=== PATIENT | female | born 1980 | race Two or more races ===

== ENCOUNTER 2024-03-11 13:30 | Inpatient (IN) | payer OTHER, MEDICAID, SELFPAY ==
[2024-03-11 13:55] VITALS: BP 109/65; PULSE 71; RESP 16; TEMP 36.9; O2SAT 99; BMI 23.4
--- NOTE | 2024-03-11 14:21 | HO.PSYADMNOT ---
HPI Date of Service: 03/11/24 Chief Complaint: Major Depression Sources of Information: patient interviewed, chart reviewed and crisis/core team assessment reviewed HPI Subjective Notes: [place]millan Warning and Conditional Voluntary Narrative: Patient is a 43 year old female with hx of MDD with psychotic features and PTSD, who self presented to ER d/t increased depression secondary to medication non-compliance. Per crisis report, per patient's boyfriend, pt stopped her medications a month ago and seeing her outpatient providers. He reports the patient will leave the house and roam the streets for hours. He stated he had put in a missing person's alert to the police. Per report, pt has not been making sense and needing help with ADL's. UTOX positive for cannabinoids. During admission assessment, armored car driver present. Pt presents alert and oriented, calm, cooperative. Pt reports feeling depressed and anxious ; pt stated, I've been different than I normally am. I am fighting with my boyfriend . Patient stated, I stopped taking the medications because I felt better ; pt educated regarding importance of medication compliance. Pt reports she has an outpatient therapist and psychiatrist. Pt denies SI/HI/VH/AH. Pt stated, my goal is to get on my meds, feel better and go back home . Discussed hx of medications; pt agreed to restarting home medications. Past Psychiatric History: Hx of multiple inpatient psychiatric hospitalizations: [facility], [facility], [facility], [facility]. Medical Evaluation Reviewed: Hospitalist Janeth Pending [facility] Family History: brother: hx of substance abuse. Social History: lives with boyfriend in an apartment, 2 children (5 and 14 y/o) one lives with their father and the other is in DCF custody. Substance History: pt reports drinks alcohol socially. smoke marijuana daily but stopped a few days ago. Trauma History: yes Diagnostics Vital Signs (24Hr): Vital Signs - 24 hr 03/11/24 13:55 Temperature 98.4 F Pulse Rate 71 Respiratory Rate 16 Blood Pressure 109/65 Pulse Oximetry 99 Oxygen Delivery Method Room Air BMI result Body Mass Index 23.4 Meds/Allergies Allergies Allergies Allergy/AdvReac Type Severity Reaction Status Date / Time No Known Allergies Allergy Verified 03/11/24 13:57 Mental Status Exam Mental Status Exam Narrative: Pt is alert and oriented; behavior is cooperative and calm; dressed in hospital attire; mood is described as depressed ; eye contact appropriate; Speech is normal rate, volume and prosody and not pressured; thought process is organized and goal directed; Thought content is on tx; denies SI/HI/VH/AH. Assessment & Plan Assessment & Plan (1) MDD (major depressive disorder), recurrent, severe, with psychosis: Status: Acute Code(s): F33.3 - Major depressive disorder, recurrent, severe with psychotic symptoms (2) PTSD (post-traumatic stress disorder): Status: Acute Code(s): F43.10 - Post-traumatic stress disorder, unspecified Plan Patient is a 43 year old female with hx of MDD with psychotic features and PTSD, who self presented to ER d/t increased depression secondary to medication non-compliance. Plan: CV 15 minute safety checks obtain collateral Start: Trazodone 150mg PO bedtime Gabapentin 400mg PO TID Vraylar 1.5mg PO daily discharge planning Patient educated on: diagnosis, medication risk/benefits, substance abuse and therapeutic strategies Informed Consent: understands Reason for continued inpatient stay Substantial Risk for: med/psych decompensation Statement Statement: I have reviewed the history and physical and performed a pertinent examination on my patient. No changes have occurred unless specified. If the History and Physical was not performed prior to admission, the Hospitalist's service will be consulted for completing the admission physical. Time Spent With Patient Time: Total time managing care of this patient today _60___ minutes.
--- NOTE | 2024-03-11 14:57 | P.CONHOSP_ITS ---
History of Present Illness Data of Consult Service Date: 03/11/24 Requesting physician: Jagdeep Ontiveros Primary Care Provider: Unknown Physician HPI Reason for consult: medical H&P 43-year-old female without any significant medical history who reports occasional marijuana use and cigarette smoking only 1 stressed admitted to adult Psychiatry with consult placed hospitalist service for medical H&P. She has no complaints at this time and there does not appear to be any acute medical issues. While at [facility] ED, hematology studies unremarkable. Renal function electrolyte levels normal. EKG showed normal sinus rhythm, rate [address]/T-wave abnormalities. Review of Systems Review of Systems: General: No fevers, malaise, unintentional weight loss HEENT: No blurred vision, diplopia. No sore throat, nasal congestion, rhinorrhea, sinus pain, ear pain Cardiovascular: No chest pain, palpitations, or leg edema Respiratory: No shortness of breath, wheezing, cough GI: No abdominal pain, nausea, vomiting, diarrhea, constipation, melena, hematochezia : No dysuria, hematuria, increased urinary frequency, decreased urinary output MSK: No myalgia, back pain Neuro: No headaches, weakness, paresthesias Skin: No rashes or lesions [facility] Medical History (Updated 03/11/24 @ 14:59 by BLAS Ramachandran) No pertinent past medical history Social History Household Members: Significant Other Housing: Apartment Patient Tobacco Use Status: Former Tobacco user Use of substances other than those prescribed or required for medical reasons: No Substance Use Type: Marijuana Substance Use Frequency: Occasionally Last Used Substance: Just Prior to Admission Currently Displaying Signs/Symptoms of Drug Intoxication Withdrawal: No Have you been hit, kicked, punched, or otherwise hurt by someone within the past year? If so, by whom?: No Do you feel safe in your current relationship?: Yes Is there a partner from a previous relationship who is making you feel unsafe now?: No Are you made to feel afraid or neglected: No Advance Directives: No Advance Directives Information Provided: No Do you have a plan to hurt others: No Plan Recently lost weight without trying: Yes How much weight loss: 14-23 pounds Eating poorly because of decreased appetite: Yes Nutrition screen score: 5 Nutrition Risks: No Nutritional Risk Patient : No : No Poor oral hygiene: No Meds Allergies Allergy/AdvReac Type Severity Reaction Status Date / Time No Known Allergies Allergy Verified 03/11/24 13:57 Active Medications: Current Medications Acetaminophen (Acetaminophen 325 Mg Tablet) 650 mg PO Q6H PRN PRN Reason: Headache/Pain Mild Scale (1-3) Al Hydroxide/Mg Hydroxide (Magnesium Hydrox/Alum Hydrox 30 Ml Oral.Susp) 30 ml PO Q6H PRN PRN Reason: Heartburn/Nausea Cariprazine (Cariprazine Hcl 1.5 Mg Capsule) 1.5 mg PO DAILY [facility] Gabapentin (Gabapentin 400 Mg Capsule) 400 mg PO TID [facility] Hydroxyzine HCl (Hydroxyzine Hcl 25 Mg Tablet) 25 mg PO Q6H PRN PRN Reason: Anxiety Magnesium Hydroxide (Milk Of Magnesia 30 Ml Oral.Susp) 30 ml PO DAILY PRN PRN Reason: Constipation Nicotine Polacrilex (Nicotine Polacrilex 2 Mg Gum) 4 mg BUCCAL Q2H PRN PRN Reason: Nicotine Cravings Trazodone HCl (Trazodone Hcl 50 Mg Tablet) 150 mg PO BEDTIME [facility] Physical Exam Vital Signs and Narrative: Vital Signs: Last Vital Signs Temp 98.4 F 03/11/24 13:55 Pulse 71 03/11/24 13:55 Resp 16 03/11/24 13:55 BP 109/65 03/11/24 13:55 Pulse Ox 99 03/11/24 13:55 O2 Del Method Room Air 03/11/24 13:55 BMI result Body Mass Index 23.4 Constitutional - Awake and Alert, No apparent distress Eyes - PERRLA, EOMI Cardiovascular - S1S2, RRR, No edema Respiratory - Normal lung expansion, Normal respiratory effort, No respiratory distress, CTA bilaterally Gastrointestinal - NT / ND; +BS; No rebound or guarding Extremities - no calf tenderness bilaterally, no swelling Musculoskeletal - Normal inspection, normal ROM Skin - Warm/Dry Neurological - Alert & oriented x3, CN II-XII in tact, 5/5 strength BUE and BLE Psychological - Appropriate affect Assessment and Plan (1) Routine medical exam: Status: Acute Plan 43-year-old female without any significant medical history who reports occasional marijuana use and cigarette smoking only 1 stressed admitted to adult Psychiatry with consult placed hospitalist service for medical H&P. #Mood disorder -plan per Psychiatry # cigarette smoking -reports occasional use, cessation advised -declines replacement therapy Thank you for allowing me to participate in this consult. Signing off at this time. Please do not hesitate to call for further questions or for any acute medical issues
--- NOTE | 2024-03-11 14:57 | PC.ADMIT ---
Jo Ann is a 43-year-old female admitted from [facility] ED to on a CV for treatment of major depression recurrent with psychosis. Tox screen positive for THC. Pt's boyfriend dropped her off to [facility] ED after she reported feeling overwhelmed and distracted. She reported increased depression and difficulty sleeping. Pt reportedly has not been taking medications for over a month. Pt has a hx of numerous inpatient admissions at [facility], [facility], and [facility]. Pt reported being traumatized after her children were removed by [facility] in 2019 due to her depression and inability to care for them. Upon arrival to , pt was calm, pleasant, alert and oriented, and cooperative. Pt was slow to respond at times. Skin check complete. Mood is depressed with congruent affect. Pt does not appear to be responding to internal stimuli. Thought process is linear and organized. Pt reported recent weight loss of 15 lb in 1 month. Pt denies alcohol use or medical issues. Pt denied SI/HI/AH/VH. Pt placed on 15 minute safety checks.
[2024-03-11] MEDS: Cariprazine HCl 1.5 MG CAPSULE PO (15:21)
[2024-03-11] MEDS: Gabapentin 400 MG CAPSULE PO ×2 (15:21→21:44)
[2024-03-11 20:00] VITALS: BP 106/60; PULSE 61; RESP 16; TEMP 36.8; O2SAT 99
[2024-03-11] MEDS: traZODone HCL 50 MG TABLET 150 MG PO (21:43)
[2024-03-12 08:00] VITALS: BP 112/66; PULSE 79; RESP 16; TEMP 36.9; O2SAT 100
[2024-03-12] MEDS: Cariprazine HCl 1.5 MG CAPSULE PO (08:17)
[2024-03-12] MEDS: Gabapentin 400 MG CAPSULE PO ×3 (08:17→21:26)
[2024-03-12 08:38] LABS: Alanine Aminotransferase 14 U/L (0-31); Albumin Level 4.3 g/dL (3.5-5.0); Alkaline Phosphatase 42 U/L (39-117); Anion Gap 11 (12-20); Aspartate Amino Transferase 15 U/L (5-31); Bilirubin Total 0.4 mg/dL (0.0-1.0); Blood Urea Nitrogen 9 mg/dL (9-16); Calcium 9.3 mg/dL (8.4-10.2); Carbon Dioxide 24 mmol/L (22-29); Chloride 109 mmol/L (96-108); Cholesterol 133 mg/dL (<200); Creatinine Clr Calc Pharmacy 84.2; Estimated Glomerular Filt Rate > 60; Glucose Fasting 107 mg/dL (60-99); HDL Cholesterol 29 mg/dL (>40); LDL Cholesterol Calculated 94 mg/dL (<100); Potassium 3.9 mmol/L (3.3-5.1); Sodium 140 mmol/L (135-145); Triglycerides 53 mg/dL (<150)
--- NOTE | 2024-03-12 08:53 | P.PNPSI_ITS ---
Subjective Subjective Date of Service: 03/12/24 Reason For Visit: Major Depression Subjective Notes: Conditional Voluntary Interim History: Reviewed with . nanny caregiver present. Pt reports feeling good but a little anxious and restless ; pt stated, I'm starting to feel better. It's hard to explain but I'm feeling different than I felt when I came in here . Pt reports sleeping and eating well. denies SI/HI/VH/AH. Medication Compliance: Yes Side effects from medications: No Review of Systems Constitutional: Reports as per HPI Eyes: Reports as per HPI Reports as per HPI Cardiovascular: Reports as per HPI Respiratory: Reports as per HPI Gastrointestinal: Reports as per HPI Musculoskeletal: Reports as per HPI Skin/Breast: Reports as per HPI Reports as per HPI Psychiatric: Reports as per HPI Endocrine: Reports as per HPI Hematologic/Lymphatic: Reports as per HPI Allergic/Immunologic: Reports as per HPI Mental Status Exam Mental Status Exam Narrative: Pt is alert and oriented; behavior is cooperative and calm; dressed in hospital attire; mood is described as anxious ; eye contact appropriate; Speech is normal rate, volume and prosody and not pressured; thought process is organized and goal directed; Thought content is on tx; denies SI/HI/VH/AH. Diagnostics Vital Signs (24Hr): Vital Signs - 24 hr 03/11/24 13:55 03/11/24 20:00 03/12/24 08:00 Temperature 98.4 F 98.3 F 98.5 F Pulse Rate 71 61 79 Respiratory Rate 16 16 16 Blood Pressure 109/65 106/60 112/66 Pulse Oximetry 99 99 100 Oxygen Delivery Method Room Air Room Air Room Air BMI result Body Mass Index 23.4 Labs 03/12/24 08:09 Labs: Laboratory Results - last 48 hr 03/12/24 08:09 Sodium 140 Potassium 3.9 Chloride 109 H Carbon Dioxide 24 Anion Gap 11 L BUN 9 Creatinine 0.72 Estim Creat Clear Calc 84.2 Estimated GFR > 60 Fasting Glucose 107 H Calcium 9.3 Total Bilirubin 0.4 AST 15 ALT 14 Alkaline Phosphatase 42 Total Protein 7.0 Albumin 4.3 Triglycerides 53 Cholesterol 133 LDL Cholesterol, Calc 94 HDL Cholesterol 29 L Medications Medications Current Medications Acetaminophen (Acetaminophen 325 Mg Tablet) 650 mg PO Q6H PRN PRN Reason: Headache/Pain Mild Scale (1-3) Al Hydroxide/Mg Hydroxide (Magnesium Hydrox/Alum Hydrox 30 Ml Oral.Susp) 30 ml PO Q6H PRN PRN Reason: Heartburn/Nausea Cariprazine (Cariprazine Hcl 1.5 Mg Capsule) 1.5 mg PO DAILY [facility] Last Admin: 03/12/24 08:17 Dose: 1.5 mg Gabapentin (Gabapentin 400 Mg Capsule) 400 mg PO TID [facility] Last Admin: 03/12/24 08:17 Dose: 400 mg Hydroxyzine HCl (Hydroxyzine Hcl 25 Mg Tablet) 25 mg PO Q6H PRN PRN Reason: Anxiety Magnesium Hydroxide (Milk Of Magnesia 30 Ml Oral.Susp) 30 ml PO DAILY PRN PRN Reason: Constipation Nicotine Polacrilex (Nicotine Polacrilex 2 Mg Gum) 4 mg BUCCAL Q2H PRN PRN Reason: Nicotine Cravings Trazodone HCl (Trazodone Hcl 50 Mg Tablet) 150 mg PO BEDTIME [facility] Last Admin: 03/11/24 21:43 Dose: 150 mg Allergies Allergies Allergy/AdvReac Type Severity Reaction Status Date / Time No Known Allergies Allergy Verified 03/11/24 13:57 Assessment & Plan Assessment & Plan (1) MDD (major depressive disorder), recurrent, severe, with psychosis: Status: Acute Code(s): F33.3 - Major depressive disorder, recurrent, severe with psychotic symptoms (2) PTSD (post-traumatic stress disorder): Status: Acute Code(s): F43.10 - Post-traumatic stress disorder, unspecified Plan Patient is a 43 year old female with hx of MDD with psychotic features and PTSD, who self presented to ER d/t increased depression secondary to medication non- compliance. Plan: CV 15 minute safety checks obtain collateral Start: Trazodone 150mg PO bedtime Gabapentin 400mg PO TID Vraylar 1.5mg PO daily discharge planning 03/12: nanny caregiver present. Pt reports feeling good but a little anxious and restless ; pt stated, I'm starting to feel better. It's hard to explain but I'm feeling different than I felt when I came in here . Pt reports sleeping and eating well. denies SI/HI/VH/AH. continue current tx plan. Patient educated on: diagnosis and medication risk/benefits Informed Consent: understands Reason for continued inpatient stay Substantial Risk for: med/psych decompensation Time Spent With Patient Time: Total time managing care of this patient today _20___ minutes.
[2024-03-12 19:45] VITALS: BP 98/57; PULSE 70; RESP 16; TEMP 36.8; O2SAT 100
[2024-03-12] MEDS: traZODone HCL 50 MG TABLET 150 MG PO (21:26)
[2024-03-13 07:00] VITALS: BMI 23.5
[2024-03-13 07:50] VITALS: BP 115/55; PULSE 84; RESP 16; TEMP 36.7; O2SAT 100
[2024-03-13] MEDS: Gabapentin 400 MG CAPSULE PO ×3 (08:19→21:04)
[2024-03-13] MEDS: Cariprazine HCl 1.5 MG CAPSULE PO (08:19)
--- NOTE | 2024-03-13 09:38 | P.PNPSI_ITS ---
Subjective Subjective Date of Service: 03/13/24 Reason For Visit: Major Depression Subjective Notes: Conditional Voluntary Interim History: Reviewed with . natural gas basis trader and social science manager, Li, present. Pt reports feeling similar to yesterday; still anxious but not as depressed ; pt stated, I'm not sure what is making me anxious. I feel like I should be doing something . pt denies SI/HI/VH/AH. Vraylar increased to 3mg PO daily. Medication Compliance: Yes Side effects from medications: No Attending Groups: No Review of Systems Constitutional: Reports as per HPI Eyes: Reports as per HPI Reports as per HPI Cardiovascular: Reports as per HPI Respiratory: Reports as per HPI Gastrointestinal: Reports as per HPI Musculoskeletal: Reports as per HPI Skin/Breast: Reports as per HPI Reports as per HPI Psychiatric: Reports as per HPI Endocrine: Reports as per HPI Hematologic/Lymphatic: Reports as per HPI Allergic/Immunologic: Reports as per HPI Mental Status Exam Mental Status Exam Narrative: Pt is alert and oriented; behavior is cooperative and calm; dressed in hospital attire; mood is described as anxious ; eye contact appropriate; Speech is normal rate, volume and prosody and not pressured; thought process is organized and goal directed; Thought content is on tx; denies SI/HI/VH/AH. Diagnostics Vital Signs (24Hr): Vital Signs - 24 hr 03/12/24 19:45 03/13/24 07:50 Temperature 98.3 F 98.0 F Pulse Rate 70 84 Respiratory Rate 16 16 Blood Pressure 98/57 L 115/55 L Pulse Oximetry 100 100 Oxygen Delivery Method Room Air Room Air BMI result Body Mass Index 23.5 Labs 03/12/24 08:09 Labs: Laboratory Results - last 48 hr 03/12/24 08:09 Sodium 140 Potassium 3.9 Chloride 109 H Carbon Dioxide 24 Anion Gap 11 L BUN 9 Creatinine 0.72 Estim Creat Clear Calc 84.2 Estimated GFR > 60 Fasting Glucose 107 H Calcium 9.3 Total Bilirubin 0.4 AST 15 ALT 14 Alkaline Phosphatase 42 Total Protein 7.0 Albumin 4.3 Triglycerides 53 Cholesterol 133 LDL Cholesterol, Calc 94 HDL Cholesterol 29 L Medications Medications Current Medications Acetaminophen (Acetaminophen 325 Mg Tablet) 650 mg PO Q6H PRN PRN Reason: Headache/Pain Mild Scale (1-3) Al Hydroxide/Mg Hydroxide (Magnesium Hydrox/Alum Hydrox 30 Ml Oral.Susp) 30 ml PO Q6H PRN PRN Reason: Heartburn/Nausea Cariprazine (Cariprazine Hcl 1.5 Mg Capsule) 1.5 mg PO DAILY [facility] Last Admin: 03/13/24 08:19 Dose: 1.5 mg Gabapentin (Gabapentin 400 Mg Capsule) 400 mg PO TID [facility] Last Admin: 03/13/24 08:19 Dose: 400 mg Hydroxyzine HCl (Hydroxyzine Hcl 25 Mg Tablet) 25 mg PO Q6H PRN PRN Reason: Anxiety Magnesium Hydroxide (Milk Of Magnesia 30 Ml Oral.Susp) 30 ml PO DAILY PRN PRN Reason: Constipation Nicotine Polacrilex (Nicotine Polacrilex 2 Mg Gum) 4 mg BUCCAL Q2H PRN PRN Reason: Nicotine Cravings Trazodone HCl (Trazodone Hcl 50 Mg Tablet) 150 mg PO BEDTIME [facility] Last Admin: 03/12/24 21:26 Dose: 150 mg Allergies Allergies Allergy/AdvReac Type Severity Reaction Status Date / Time No Known Allergies Allergy Verified 03/11/24 13:57 Assessment & Plan Assessment & Plan (1) MDD (major depressive disorder), recurrent, severe, with psychosis: Status: Acute Code(s): F33.3 - Major depressive disorder, recurrent, severe with psychotic symptoms (2) PTSD (post-traumatic stress disorder): Status: Acute Code(s): F43.10 - Post-traumatic stress disorder, unspecified Plan Patient is a 43 year old female with hx of MDD with psychotic features and PTSD, who self presented to ER d/t increased depression secondary to medication non- compliance. Plan: CV 15 minute safety checks obtain collateral Start: Trazodone 150mg PO bedtime Gabapentin 400mg PO TID Vraylar 1.5mg PO daily discharge planning 03/12: natural gas basis trader present. Pt reports feeling good but a little anxious and restless ; pt stated, I'm starting to feel better. It's hard to explain but I'm feeling different than I felt when I came in here . Pt reports sleeping and eating well. denies SI/HI/VH/AH. continue current tx plan. 03/13: social science managerLi, present. Pt reports feeling similar to yesterday; still anxious but not as depressed ; pt stated, I'm not sure what is making me anxious. I feel like I should be doing something . pt denies SI/HI/VH/AH. Vraylar increased to 3mg PO daily. Patient educated on: diagnosis and medication risk/benefits Informed Consent: understands Reason for continued inpatient stay Substantial Risk for: med/psych decompensation Time Spent With Patient Time: Total time managing care of this patient today _20___ minutes.
[2024-03-13] MEDS: hydrOXYzine HCL 25 MG TABLET PO (15:26)
[2024-03-13 20:00] VITALS: BP 104/60; PULSE 64; RESP 16; TEMP 37.1; O2SAT 99
[2024-03-13] MEDS: traZODone HCL 50 MG TABLET 150 MG PO (21:04)
[2024-03-14 08:00] VITALS: BP 98/63; PULSE 78; RESP 16; TEMP 36.6; O2SAT 99
[2024-03-14] MEDS: Gabapentin 400 MG CAPSULE PO ×3 (08:38→20:31)
[2024-03-14] MEDS: Cariprazine HCl 3 MG CAPSULE PO (08:38)
--- NOTE | 2024-03-14 09:18 | HO.PSYCHPN ---
Subjective Subjective Date of Service: 03/14/24 Reason For Visit: Major Depression Subjective Notes: Conditional Voluntary Interim History: Reviewed with . jet engine mechanic and social insurance analyst, Li, present. Pt reports feeling anxious but the medications are helping .pt guarded during assessment; she reports getting upset last evening d/t thinking about a situation I don't want to talk about . pt denies SI/HI/VH/AH. Family meeting scheduled with sister for 03/18/24. Medication Compliance: Yes Side effects from medications: No Attending Groups: No Review of Systems Constitutional: Reports as per HPI Eyes: Reports as per HPI Reports as per HPI Cardiovascular: Reports as per HPI Respiratory: Reports as per HPI Gastrointestinal: Reports as per HPI Musculoskeletal: Reports as per HPI Skin/Breast: Reports as per HPI Reports as per HPI Psychiatric: Reports as per HPI Endocrine: Reports as per HPI Hematologic/Lymphatic: Reports as per HPI Allergic/Immunologic: Reports as per HPI Mental Status Exam Mental Status Exam Narrative: Pt is alert and oriented; behavior is cooperative and calm; dressed in hospital attire; mood is described as anxious ; eye contact appropriate; Speech is normal rate, volume and prosody and not pressured; thought process is organized and goal directed; Thought content is on tx; denies SI/HI/VH/AH. Diagnostics Vital Signs (24Hr): Vital Signs - 24 hr 03/13/24 20:00 03/14/24 08:00 Temperature 98.8 F 97.9 F Pulse Rate 64 78 Respiratory Rate 16 16 Blood Pressure 104/60 98/63 Pulse Oximetry 99 99 Oxygen Delivery Method Room Air Room Air BMI result Body Mass Index 23.5 Labs 03/12/24 08:09 Medications Medications Current Medications Acetaminophen (Acetaminophen 325 Mg Tablet) 650 mg PO Q6H PRN PRN Reason: Headache/Pain Mild Scale (1-3) Al Hydroxide/Mg Hydroxide (Magnesium Hydrox/Alum Hydrox 30 Ml Oral.Susp) 30 ml PO Q6H PRN PRN Reason: Heartburn/Nausea Cariprazine (Cariprazine Hcl 3 Mg Capsule) 3 mg PO DAILY [facility] Last Admin: 03/14/24 08:38 Dose: 3 mg Gabapentin (Gabapentin 400 Mg Capsule) 400 mg PO TID [facility] Last Admin: 03/14/24 08:38 Dose: 400 mg Hydroxyzine HCl (Hydroxyzine Hcl 25 Mg Tablet) 25 mg PO Q6H PRN PRN Reason: Anxiety Last Admin: 03/13/24 15:26 Dose: 25 mg Magnesium Hydroxide (Milk Of Magnesia 30 Ml Oral.Susp) 30 ml PO DAILY PRN PRN Reason: Constipation Nicotine Polacrilex (Nicotine Polacrilex 2 Mg Gum) 4 mg BUCCAL Q2H PRN PRN Reason: Nicotine Cravings Trazodone HCl (Trazodone Hcl 50 Mg Tablet) 150 mg PO BEDTIME [facility] Last Admin: 03/13/24 21:04 Dose: 150 mg Allergies Allergies Allergy/AdvReac Type Severity Reaction Status Date / Time No Known Allergies Allergy Verified 03/11/24 13:57 Assessment & Plan Assessment & Plan (1) MDD (major depressive disorder), recurrent, severe, with psychosis: Status: Acute Code(s): F33.3 - Major depressive disorder, recurrent, severe with psychotic symptoms (2) PTSD (post-traumatic stress disorder): Status: Acute Code(s): F43.10 - Post-traumatic stress disorder, unspecified Plan Patient is a 43 year old female with hx of MDD with psychotic features and PTSD, who self presented to ER d/t increased depression secondary to medication non-compliance. Plan: CV 15 minute safety checks obtain collateral Start: Trazodone 150mg PO bedtime Gabapentin 400mg PO TID Vraylar 1.5mg PO daily discharge planning 03/12: jet engine mechanic present. Pt reports feeling good but a little anxious and restless ; pt stated, I'm starting to feel better. It's hard to explain but I'm feeling different than I felt when I came in here . Pt reports sleeping and eating well. denies SI/HI/VH/AH. continue current tx plan. 03/13: social insurance analystLi, present. Pt reports feeling similar to yesterday; still anxious but not as depressed ; pt stated, I'm not sure what is making me anxious. I feel like I should be doing something . pt denies SI/HI/VH/AH. Vraylar increased to 3mg PO daily. 03/14: jet engine mechanic and social insurance analystLi, present. Pt reports feeling anxious but the medications are helping .pt guarded during assessment; she reports getting upset last evening d/t thinking about a situation I don't want to talk about . pt denies SI/HI/VH/AH. Family meeting scheduled with sister for 03/18/24. Patient educated on: diagnosis and medication risk/benefits Informed Consent: understands Reason for continued inpatient stay Substantial Risk for: med/psych decompensation Time Spent With Patient Time: Total time managing care of this patient today _20___ minutes.
[2024-03-14] MEDS: hydrOXYzine HCL 25 MG TABLET PO (14:23)
[2024-03-14 20:00] VITALS: BP 100/58; PULSE 80; RESP 18; TEMP 36.5; O2SAT 100
[2024-03-14] MEDS: Milk of Magnesia 30 ML ORAL.SUSP PO (20:20)
[2024-03-14] MEDS: traZODone HCL 50 MG TABLET 150 MG PO (20:31)
[2024-03-15 07:46] VITALS: BP 106/69; PULSE 104; RESP 20; TEMP 36.6; O2SAT 100
[2024-03-15] MEDS: Gabapentin 400 MG CAPSULE PO ×3 (08:26→21:58)
[2024-03-15] MEDS: Cariprazine HCl 3 MG CAPSULE PO (08:27)
--- NOTE | 2024-03-15 08:57 | HO.PSYCHPN ---
Subjective Subjective Date of Service: 03/15/24 Reason For Visit: Major Depression Interim History: Pt reports feeling anxious but overall improved. Denies SI/HI/VH/AH. She is adherent to medications and denies side effects. Sleep is good. Isolates. No groups. Review of Systems Review of Systems General: No fevers, malaise, unintentional weight loss HEENT: No blurred vision, diplopia. No sore throat, nasal congestion, rhinorrhea, sinus pain, ear pain Cardiovascular: No chest pain, palpitations, or leg edema Respiratory: No shortness of breath, wheezing, cough GI: No abdominal pain, nausea, vomiting, diarrhea, constipation, melena, hematochezia : No dysuria, hematuria, increased urinary frequency, decreased urinary output MSK: No myalgia, back pain Neuro: No headaches, weakness, paresthesias Skin: No rashes or lesions Constitutional: Reports as per HPI Eyes: Reports as per HPI Reports as per HPI Cardiovascular: Reports as per HPI Respiratory: Reports as per HPI Gastrointestinal: Reports as per HPI Musculoskeletal: Reports as per HPI Skin/Breast: Reports as per HPI Reports as per HPI Psychiatric: Reports as per HPI Endocrine: Reports as per HPI Hematologic/Lymphatic: Reports as per HPI Allergic/Immunologic: Reports as per HPI Mental Status Exam Mental Status Exam Narrative: Pt is alert and oriented; behavior is cooperative and calm; dressed in hospital attire; mood is described as anxious ; eye contact appropriate; Speech is normal rate, volume and prosody and not pressured; thought process is organized and goal directed; Thought content is on tx; denies SI/HI/VH/AH. Diagnostics Vital Signs (24Hr): Vital Signs - 24 hr 03/14/24 20:00 03/15/24 07:46 Temperature 97.7 F 97.8 F Pulse Rate 80 104 H Respiratory Rate 18 20 Blood Pressure 100/58 L 106/69 Pulse Oximetry 100 100 Oxygen Delivery Method Room Air Room Air BMI result Body Mass Index 23.5 Labs 03/12/24 08:09 Medications Medications Current Medications Acetaminophen (Acetaminophen 325 Mg Tablet) 650 mg PO Q6H PRN PRN Reason: Headache/Pain Mild Scale (1-3) Al Hydroxide/Mg Hydroxide (Magnesium Hydrox/Alum Hydrox 30 Ml Oral.Susp) 30 ml PO Q6H PRN PRN Reason: Heartburn/Nausea Cariprazine (Cariprazine Hcl 3 Mg Capsule) 3 mg PO DAILY [facility] Last Admin: 03/15/24 08:27 Dose: 3 mg Gabapentin (Gabapentin 400 Mg Capsule) 400 mg PO TID [facility] Last Admin: 03/15/24 08:26 Dose: 400 mg Hydroxyzine HCl (Hydroxyzine Hcl 25 Mg Tablet) 25 mg PO Q6H PRN PRN Reason: Anxiety Last Admin: 03/14/24 14:23 Dose: 25 mg Magnesium Hydroxide (Milk Of Magnesia 30 Ml Oral.Susp) 30 ml PO DAILY PRN PRN Reason: Constipation Last Admin: 03/14/24 20:20 Dose: 30 ml Nicotine Polacrilex (Nicotine Polacrilex 2 Mg Gum) 4 mg BUCCAL Q2H PRN PRN Reason: Nicotine Cravings Trazodone HCl (Trazodone Hcl 50 Mg Tablet) 150 mg PO BEDTIME [facility] Last Admin: 03/14/24 20:31 Dose: 150 mg Allergies Allergies Allergy/AdvReac Type Severity Reaction Status Date / Time No Known Allergies Allergy Verified 03/11/24 13:57 Assessment & Plan Assessment & Plan (1) MDD (major depressive disorder), recurrent, severe, with psychosis: Status: Acute Code(s): F33.3 - Major depressive disorder, recurrent, severe with psychotic symptoms (2) PTSD (post-traumatic stress disorder): Status: Acute Code(s): F43.10 - Post-traumatic stress disorder, unspecified Plan Patient is a 43 year old female with hx of MDD with psychotic features and PTSD, who self presented to ER d/t increased depression secondary to medication non-compliance. Plan: CV 15 minute safety checks obtain collateral Start: Trazodone 150mg PO bedtime Gabapentin 400mg PO TID Vraylar 1.5mg PO daily discharge planning 03/12: care management associate present. Pt reports feeling good but a little anxious and restless ; pt stated, I'm starting to feel better. It's hard to explain but I'm feeling different than I felt when I came in here . Pt reports sleeping and eating well. denies SI/HI/VH/AH. continue current tx plan. 03/13: social service managerLi, present. Pt reports feeling similar to yesterday; still anxious but not as depressed ; pt stated, I'm not sure what is making me anxious. I feel like I should be doing something . pt denies SI/HI/VH/AH. Vraylar increased to 3mg PO daily. 03/14: care management associate and social service manager, Li, present. Pt reports feeling anxious but the medications are helping .pt guarded during assessment; she reports getting upset last evening d/t thinking about a situation I don't want to talk about . pt denies SI/HI/VH/AH. Family meeting scheduled with sister for 03/18/24. 03/15: continue current management and treatment plan. Reason for continued inpatient stay Substantial Risk for: inability to function and rapid decompensation Time Spent With Patient Time: Total time managing care of this patient today ____ minutes.
[2024-03-15 20:00] VITALS: RESP 18
[2024-03-15] MEDS: traZODone HCL 50 MG TABLET 150 MG PO (21:58)
[2024-03-16 07:40] VITALS: BP 110/55; PULSE 100; RESP 16; TEMP 36.5; O2SAT 99
[2024-03-16] MEDS: Cariprazine HCl 3 MG CAPSULE PO (08:44)
[2024-03-16] MEDS: Gabapentin 400 MG CAPSULE PO ×3 (08:44→22:00)
[2024-03-16] MEDS: hydrOXYzine HCL 25 MG TABLET PO (13:59)
--- NOTE | 2024-03-16 15:59 | HO.PSYCHPN ---
Subjective Subjective Date of Service: 03/16/24 Reason For Visit: Major Depression Interim History: Pt reports feeling anxious but overall improved. Says she thought she heard voice for a few minutes and then it resolved on its own. Denies SI/HI/VH. She is adherent to medications and denies side effects. Sleep is good. Isolates. No groups. Review of Systems Review of Systems General: No fevers, malaise, unintentional weight loss HEENT: No blurred vision, diplopia. No sore throat, nasal congestion, rhinorrhea, sinus pain, ear pain Cardiovascular: No chest pain, palpitations, or leg edema Respiratory: No shortness of breath, wheezing, cough GI: No abdominal pain, nausea, vomiting, diarrhea, constipation, melena, hematochezia : No dysuria, hematuria, increased urinary frequency, decreased urinary output MSK: No myalgia, back pain Neuro: No headaches, weakness, paresthesias Skin: No rashes or lesions Constitutional: Reports as per HPI Eyes: Reports as per HPI Reports as per HPI Cardiovascular: Reports as per HPI Respiratory: Reports as per HPI Gastrointestinal: Reports as per HPI Musculoskeletal: Reports as per HPI Skin/Breast: Reports as per HPI Reports as per HPI Psychiatric: Reports as per HPI Endocrine: Reports as per HPI Hematologic/Lymphatic: Reports as per HPI Allergic/Immunologic: Reports as per HPI Mental Status Exam Mental Status Exam Narrative: Pt is alert and oriented; behavior is cooperative and calm; Rubs face/eyebrows repeatedly. dressed in hospital attire; mood is described as anxious ; eye contact appropriate; Speech is normal rate, volume and prosody and not pressured; thought process is organized and goal directed; Thought content is on tx; denies SI/HI Diagnostics Vital Signs (24Hr): Vital Signs - 24 hr 03/15/24 20:00 03/16/24 07:40 Temperature 97.7 F Pulse Rate 100 Respiratory Rate 18 16 Blood Pressure 110/55 L Pulse Oximetry 99 Oxygen Delivery Method Room Air BMI result Body Mass Index 23.5 Labs 03/12/24 08:09 Medications Medications Current Medications Acetaminophen (Acetaminophen 325 Mg Tablet) 650 mg PO Q6H PRN PRN Reason: Headache/Pain Mild Scale (1-3) Al Hydroxide/Mg Hydroxide (Magnesium Hydrox/Alum Hydrox 30 Ml Oral.Susp) 30 ml PO Q6H PRN PRN Reason: Heartburn/Nausea Cariprazine (Cariprazine Hcl 3 Mg Capsule) 3 mg PO DAILY [facility] Last Admin: 03/16/24 08:44 Dose: 3 mg Gabapentin (Gabapentin 400 Mg Capsule) 400 mg PO TID [facility] Last Admin: 03/16/24 15:06 Dose: 400 mg Hydroxyzine HCl (Hydroxyzine Hcl 25 Mg Tablet) 25 mg PO Q6H PRN PRN Reason: Anxiety Last Admin: 03/16/24 13:59 Dose: 25 mg Magnesium Hydroxide (Milk Of Magnesia 30 Ml Oral.Susp) 30 ml PO DAILY PRN PRN Reason: Constipation Last Admin: 03/14/24 20:20 Dose: 30 ml Nicotine Polacrilex (Nicotine Polacrilex 2 Mg Gum) 4 mg BUCCAL Q2H PRN PRN Reason: Nicotine Cravings Trazodone HCl (Trazodone Hcl 50 Mg Tablet) 150 mg PO BEDTIME [facility] Last Admin: 03/15/24 21:58 Dose: 150 mg Allergies Allergies Allergy/AdvReac Type Severity Reaction Status Date / Time No Known Allergies Allergy Verified 03/11/24 13:57 Assessment & Plan Assessment & Plan (1) MDD (major depressive disorder), recurrent, severe, with psychosis: Status: Acute Code(s): F33.3 - Major depressive disorder, recurrent, severe with psychotic symptoms (2) PTSD (post-traumatic stress disorder): Status: Acute Code(s): F43.10 - Post-traumatic stress disorder, unspecified Plan Patient is a 43 year old female with hx of MDD with psychotic features and PTSD, who self presented to ER d/t increased depression secondary to medication non-compliance. Plan: CV 15 minute safety checks obtain collateral Start: Trazodone 150mg PO bedtime Gabapentin 400mg PO TID Vraylar 1.5mg PO daily discharge planning 03/12: shear setter present. Pt reports feeling good but a little anxious and restless ; pt stated, I'm starting to feel better. It's hard to explain but I'm feeling different than I felt when I came in here . Pt reports sleeping and eating well. denies SI/HI/VH/AH. continue current tx plan. 03/13: social services coordinatorLi, present. Pt reports feeling similar to yesterday; still anxious but not as depressed ; pt stated, I'm not sure what is making me anxious. I feel like I should be doing something . pt denies SI/HI/VH/AH. Vraylar increased to 3mg PO daily. 03/14: shear setter and social services coordinator, Li, present. Pt reports feeling anxious but the medications are helping .pt guarded during assessment; she reports getting upset last evening d/t thinking about a situation I don't want to talk about . pt denies SI/HI/VH/AH. Family meeting scheduled with sister for 03/18/24. 03/15: continue current management and treatment plan. 03/16: continue current management and treatment plan. Reason for continued inpatient stay Substantial Risk for: harm to self, inability to function and rapid decompensation Time Spent With Patient Time: Total time managing care of this patient today ____ minutes.
[2024-03-16 20:00] VITALS: BP 95/58; PULSE 85; RESP 18; TEMP 36.9; O2SAT 97
[2024-03-16] MEDS: traZODone HCL 50 MG TABLET 150 MG PO (22:00)
[2024-03-17 08:15] VITALS: BP 102/55; PULSE 68; RESP 16; TEMP 36.8; O2SAT 100
[2024-03-17] MEDS: Gabapentin 400 MG CAPSULE PO ×3 (08:31→21:24)
[2024-03-17] MEDS: Cariprazine HCl 3 MG CAPSULE PO (08:31)
[2024-03-17] MEDS: hydrOXYzine HCL 25 MG TABLET PO (10:08)
--- NOTE | 2024-03-17 10:53 | HO.PSYCHPN ---
Subjective Subjective Date of Service: 03/17/24 Reason For Visit: Major Depression Interim History: Pt reports feeling anxious but overall improved. Complains of occasional voices and shadows but they're brief. She gets anxious when they happen. Discussed seroquel PRN. Patient agreeable. Denies SI/HI. She is adherent to medications and denies side effects. Sleep is good. Isolates. No groups. Review of Systems Review of Systems General: No fevers, malaise, unintentional weight loss HEENT: No blurred vision, diplopia. No sore throat, nasal congestion, rhinorrhea, sinus pain, ear pain Cardiovascular: No chest pain, palpitations, or leg edema Respiratory: No shortness of breath, wheezing, cough GI: No abdominal pain, nausea, vomiting, diarrhea, constipation, melena, hematochezia : No dysuria, hematuria, increased urinary frequency, decreased urinary output MSK: No myalgia, back pain Neuro: No headaches, weakness, paresthesias Skin: No rashes or lesions Constitutional: Reports as per HPI Eyes: Reports as per HPI Reports as per HPI Cardiovascular: Reports as per HPI Respiratory: Reports as per HPI Gastrointestinal: Reports as per HPI Musculoskeletal: Reports as per HPI Skin/Breast: Reports as per HPI Reports as per HPI Psychiatric: Reports as per HPI Endocrine: Reports as per HPI Hematologic/Lymphatic: Reports as per HPI Allergic/Immunologic: Reports as per HPI Mental Status Exam Mental Status Exam Narrative: Pt is alert and oriented; behavior is cooperative and calm; Rubs face/eyebrows repeatedly. dressed in hospital attire; mood is described as anxious ; eye contact appropriate; Speech is normal rate, volume and prosody and not pressured; thought process is organized and goal directed; Thought content is on tx; denies SI/HI Diagnostics Vital Signs (24Hr): Vital Signs - 24 hr 03/16/24 20:00 03/17/24 08:15 Temperature 98.4 F 98.3 F Pulse Rate 85 68 Respiratory Rate 18 16 Blood Pressure 95/58 L 102/55 L Pulse Oximetry 97 100 Oxygen Delivery Method Room Air Room Air BMI result Body Mass Index 23.5 Labs 03/12/24 08:09 Medications Medications Current Medications Acetaminophen (Acetaminophen 325 Mg Tablet) 650 mg PO Q6H PRN PRN Reason: Headache/Pain Mild Scale (1-3) Al Hydroxide/Mg Hydroxide (Magnesium Hydrox/Alum Hydrox 30 Ml Oral.Susp) 30 ml PO Q6H PRN PRN Reason: Heartburn/Nausea Cariprazine (Cariprazine Hcl 3 Mg Capsule) 3 mg PO DAILY [facility] Last Admin: 03/17/24 08:31 Dose: 3 mg Gabapentin (Gabapentin 400 Mg Capsule) 400 mg PO TID [facility] Last Admin: 03/17/24 08:31 Dose: 400 mg Hydroxyzine HCl (Hydroxyzine Hcl 25 Mg Tablet) 25 mg PO Q6H PRN PRN Reason: Anxiety Last Admin: 03/17/24 10:08 Dose: 25 mg Magnesium Hydroxide (Milk Of Magnesia 30 Ml Oral.Susp) 30 ml PO DAILY PRN PRN Reason: Constipation Last Admin: 03/14/24 20:20 Dose: 30 ml Nicotine Polacrilex (Nicotine Polacrilex 2 Mg Gum) 4 mg BUCCAL Q2H PRN PRN Reason: Nicotine Cravings Trazodone HCl (Trazodone Hcl 50 Mg Tablet) 150 mg PO BEDTIME [facility] Last Admin: 03/16/24 22:00 Dose: 150 mg Allergies Allergies Allergy/AdvReac Type Severity Reaction Status Date / Time No Known Allergies Allergy Verified 03/11/24 13:57 Assessment & Plan Assessment & Plan (1) MDD (major depressive disorder), recurrent, severe, with psychosis: Status: Acute Code(s): F33.3 - Major depressive disorder, recurrent, severe with psychotic symptoms (2) PTSD (post-traumatic stress disorder): Status: Acute Code(s): F43.10 - Post-traumatic stress disorder, unspecified Plan Patient is a 43 year old female with hx of MDD with psychotic features and PTSD, who self presented to ER d/t increased depression secondary to medication non-compliance. Plan: CV 15 minute safety checks obtain collateral Start: Trazodone 150mg PO bedtime Gabapentin 400mg PO TID Vraylar 1.5mg PO daily discharge planning 03/12: manager intensive care present. Pt reports feeling good but a little anxious and restless ; pt stated, I'm starting to feel better. It's hard to explain but I'm feeling different than I felt when I came in here . Pt reports sleeping and eating well. denies SI/HI/VH/AH. continue current tx plan. 03/13: social human services assistantsLi, present. Pt reports feeling similar to yesterday; still anxious but not as depressed ; pt stated, I'm not sure what is making me anxious. I feel like I should be doing something . pt denies SI/HI/VH/AH. Vraylar increased to 3mg PO daily. 03/14: manager intensive care and social human services assistants, Li, present. Pt reports feeling anxious but the medications are helping .pt guarded during assessment; she reports getting upset last evening d/t thinking about a situation I don't want to talk about . pt denies SI/HI/VH/AH. Family meeting scheduled with sister for 03/18/24. 03/15: continue current management and treatment plan. 03/16: continue current management and treatment plan. 03/17: Seroquel 25 mg BID PRN hallucinations. Otherwise continue current management and treatment plan. Reason for continued inpatient stay Substantial Risk for: harm to self and rapid decompensation Time Spent With Patient Time: Total time managing care of this patient today ____ minutes.
[2024-03-17] MEDS: QUEtiapine Fumarate 25 MG TABLET PO (14:20)
[2024-03-17 20:00] VITALS: BP 104/64; PULSE 69; RESP 16; TEMP 36.9; O2SAT 100
[2024-03-17] MEDS: traZODone HCL 50 MG TABLET 150 MG PO (21:24)
[2024-03-18] MEDS: hydrOXYzine HCL 25 MG TABLET PO ×2 (06:54→14:28)
[2024-03-18 07:30] VITALS: BP 96/50; PULSE 72; RESP 16; TEMP 36.7; O2SAT 100
[2024-03-18] MEDS: Gabapentin 400 MG CAPSULE PO ×3 (08:34→20:32)
[2024-03-18] MEDS: Cariprazine HCl 3 MG CAPSULE PO (08:34)
[2024-03-18] MEDS: QUEtiapine Fumarate 25 MG TABLET PO ×2 (11:08→20:32)
--- NOTE | 2024-03-18 12:58 | HO.PSYCHPN ---
Subjective Subjective Date of Service: 03/18/24 Reason For Visit: Major Depression Subjective Notes: Conditional Voluntary Healthcare Proxy: No Guardianship: No Medical Problems Affecting Mental Status: No Interim History: Team report anxiety, but with improvement over the weekend. Reported AH on 03/16 with self resolution, occasional AH/Shadows which were brief but anxiety provoking on 03/17. Seroquel prn initiated. Today team report depression, 3, anxiety 5. Slept 7 hours. Family meeting on 03/19. BP running low, today 96/50. No new diagnostics for review. Reviewed with nursing. Seroquel prn increased from bid to tid. [place] with [place] and [facility] [place]. Pt denies SI,HI, AH, VH today. She reports the weekend was calm and denies medication SE or adverse events. She asks for no current changes in the plan of care. Medication Compliance: Yes Side effects from medications: No Attending Groups: No (isolative per report) Review of Systems Acute medical concerns: No Pt denies Medical Review of Systems: unchanged Review of Systems Review of Systems Yes all other systems are reviewed and are negative Mental Status Exam Mental Status Exam Patient Appearance: Appropriate Patient Orientation: Person, Place, Time and Situation Level of Consciousness: Alert Patient Behavior: Appropriate, Guarded, Talkative, Cooperative and Good Eye Contact Mood Description: Constricted Affect Description: Constricted Patient Cognition Impaired: No Ability to Follow Directions: Good Speech Pattern: Spontaneous Speech Hallucinations: None Delusions: Not Present Thought Process: Intact Thought Content: positive for Intact Depressive Symptoms: Increased Anxiety Judgement: Good Diagnostics Vital Signs (24Hr): Vital Signs - 24 hr 03/17/24 20:00 03/18/24 07:30 Temperature 98.5 F 98.1 F Pulse Rate 69 72 Respiratory Rate 16 16 Blood Pressure 104/64 96/50 L Pulse Oximetry 100 100 Oxygen Delivery Method Room Air Room Air BMI result Body Mass Index 23.5 Labs 03/12/24 08:09 Medications Medications Current Medications Acetaminophen (Acetaminophen 325 Mg Tablet) 650 mg PO Q6H PRN PRN Reason: Headache/Pain Mild Scale (1-3) Al Hydroxide/Mg Hydroxide (Magnesium Hydrox/Alum Hydrox 30 Ml Oral.Susp) 30 ml PO Q6H PRN PRN Reason: Heartburn/Nausea Cariprazine (Cariprazine Hcl 3 Mg Capsule) 3 mg PO DAILY [facility] Last Admin: 03/18/24 08:34 Dose: 3 mg Gabapentin (Gabapentin 400 Mg Capsule) 400 mg PO TID [facility] Last Admin: 03/18/24 08:34 Dose: 400 mg Hydroxyzine HCl (Hydroxyzine Hcl 25 Mg Tablet) 25 mg PO Q6H PRN PRN Reason: Anxiety Last Admin: 03/18/24 06:54 Dose: 25 mg Magnesium Hydroxide (Milk Of Magnesia 30 Ml Oral.Susp) 30 ml PO DAILY PRN PRN Reason: Constipation Last Admin: 03/14/24 20:20 Dose: 30 ml Nicotine Polacrilex (Nicotine Polacrilex 2 Mg Gum) 4 mg BUCCAL Q2H PRN PRN Reason: Nicotine Cravings Quetiapine Fumarate (Quetiapine Fumarate 25 Mg Tablet) 25 mg PO BID PRN PRN Reason: hallucinations Last Admin: 03/18/24 11:08 Dose: 25 mg Trazodone HCl (Trazodone Hcl 50 Mg Tablet) 150 mg PO BEDTIME [facility] Last Admin: 03/17/24 21:24 Dose: 150 mg Allergies Allergies Allergy/AdvReac Type Severity Reaction Status Date / Time No Known Allergies Allergy Verified 03/11/24 13:57 Assessment & Plan Assessment & Plan (1) MDD (major depressive disorder), recurrent, severe, with psychosis: Status: Acute Code(s): F33.3 - Major depressive disorder, recurrent, severe with psychotic symptoms (2) PTSD (post-traumatic stress disorder): Status: Acute Code(s): F43.10 - Post-traumatic stress disorder, unspecified Plan Patient is a 43 year old female with hx of MDD with psychotic features and PTSD, who self presented to ER d/t increased depression secondary to medication non-compliance. Plan: CV 15 minute safety checks obtain collateral Start: Trazodone 150mg PO bedtime Gabapentin 400mg PO TID Vraylar 1.5mg PO daily discharge planning 03/12: certified court interpreter present. Pt reports feeling good but a little anxious and restless ; pt stated, I'm starting to feel better. It's hard to explain but I'm feeling different than I felt when I came in here . Pt reports sleeping and eating well. denies SI/HI/VH/AH. continue current tx plan. 03/13: neonatal social workerLi, present. Pt reports feeling similar to yesterday; still anxious but not as depressed ; pt stated, I'm not sure what is making me anxious. I feel like I should be doing something . pt denies SI/HI/VH/AH. Vraylar increased to 3mg PO daily. 03/14: certified court interpreter and neonatal social worker, Li, present. Pt reports feeling anxious but the medications are helping .pt guarded during assessment; she reports getting upset last evening d/t thinking about a situation I don't want to talk about . pt denies SI/HI/VH/AH. Family meeting scheduled with sister for 03/18/24. 03/15: continue current management and treatment plan. 03/16: continue current management and treatment plan. 03/17: Seroquel 25 mg BID PRN hallucinations. Otherwise continue current management and treatment plan. 03/18: Increase Seroqeul to 25 mg TID PRN hallucinations. Informed Consent: understands Reason for continued inpatient stay Substantial Risk for: rapid decompensation Time Spent With Patient Time: Total time managing care of this patient today ____ minutes.
[2024-03-18 20:00] VITALS: BP 101/55; PULSE 82; RESP 14; TEMP 36.9; O2SAT 100
[2024-03-18] MEDS: traZODone HCL 50 MG TABLET 150 MG PO (20:33)
--- NOTE | 2024-03-18 21:13 | PC.NURSE ---
Jo Ann reported some intermittent visual hallucinations, patient given Seroquel PO prn.
[2024-03-19] MEDS: hydrOXYzine HCL 25 MG TABLET PO ×2 (06:26→11:40)
[2024-03-19 07:20] VITALS: BP 117/59; PULSE 82; RESP 18; TEMP 36.8; O2SAT 100
[2024-03-19] MEDS: Gabapentin 400 MG CAPSULE PO ×3 (08:19→20:40)
[2024-03-19] MEDS: Cariprazine HCl 3 MG CAPSULE PO (08:19)
--- NOTE | 2024-03-19 09:54 | HO.PSYCHPN ---
Subjective Subjective Date of Service: 03/19/24 Reason For Visit: Major Depression Subjective Notes: Conditional Voluntary Healthcare Proxy: No Guardianship: No Medical Problems Affecting Mental Status: No Interim History: Family meeting with pt, sister, Dorene, pt's social problems specialist, [facility] language and literature division chair. Sister expressed concern about medicine compliance post discharge. Team will schedule VNA to assist pt with this. Pt reports she feels prepared for discharge-anxiety is present, mild, AH are managable. Denies medicine SE or adverse responses, reports regime to be useful. Sleep and appetite are intact she reports. Discharge pending scheduling of out patient appointments. Pt is feeling prepared to leave. Nursing report pt is not too milieu integrated and is somewhat isolative. Medication Compliance: Yes Side effects from medications: No Attending Groups: Intermittent Review of Systems Acute medical concerns: No Medical Review of Systems: unchanged Review of Systems Review of Systems Yes all other systems are reviewed and are negative Mental Status Exam Mental Status Exam Patient Appearance: Appropriate Patient Orientation: Person, Place, Time and Situation Level of Consciousness: Alert Patient Behavior: Appropriate, Guarded, Talkative, Cooperative and Good Eye Contact Mood Description: Constricted Affect Description: Constricted Patient Cognition Impaired: No Ability to Follow Directions: Good Speech Pattern: Spontaneous Speech Hallucinations: None Delusions: Not Present Thought Process: Intact Thought Content: positive for Intact Depressive Symptoms: Increased Anxiety Judgement: Good Diagnostics Vital Signs (24Hr): Vital Signs - 24 hr 03/18/24 20:00 03/19/24 07:20 Temperature 98.4 F 98.3 F Pulse Rate 82 82 Respiratory Rate 14 18 Blood Pressure 101/55 L 117/59 L Pulse Oximetry 100 100 Oxygen Delivery Method Room Air Room Air BMI result Body Mass Index 23.5 Labs 03/12/24 08:09 Medications Medications Current Medications Acetaminophen (Acetaminophen 325 Mg Tablet) 650 mg PO Q6H PRN PRN Reason: Headache/Pain Mild Scale (1-3) Al Hydroxide/Mg Hydroxide (Magnesium Hydrox/Alum Hydrox 30 Ml Oral.Susp) 30 ml PO Q6H PRN PRN Reason: Heartburn/Nausea Cariprazine (Cariprazine Hcl 3 Mg Capsule) 3 mg PO DAILY [facility] Last Admin: 03/19/24 08:19 Dose: 3 mg Gabapentin (Gabapentin 400 Mg Capsule) 400 mg PO TID [facility] Last Admin: 03/19/24 08:19 Dose: 400 mg Hydroxyzine HCl (Hydroxyzine Hcl 25 Mg Tablet) 25 mg PO Q6H PRN PRN Reason: Anxiety Last Admin: 03/19/24 06:26 Dose: 25 mg Magnesium Hydroxide (Milk Of Magnesia 30 Ml Oral.Susp) 30 ml PO DAILY PRN PRN Reason: Constipation Last Admin: 03/14/24 20:20 Dose: 30 ml Nicotine Polacrilex (Nicotine Polacrilex 2 Mg Gum) 4 mg BUCCAL Q2H PRN PRN Reason: Nicotine Cravings Quetiapine Fumarate (Quetiapine Fumarate 25 Mg Tablet) 25 mg PO TID PRN PRN Reason: hallucinations Last Admin: 03/18/24 20:32 Dose: 25 mg Trazodone HCl (Trazodone Hcl 50 Mg Tablet) 150 mg PO BEDTIME [facility] Last Admin: 03/18/24 20:33 Dose: 150 mg Allergies Allergies Allergy/AdvReac Type Severity Reaction Status Date / Time No Known Allergies Allergy Verified 03/11/24 13:57 Assessment & Plan Assessment & Plan (1) MDD (major depressive disorder), recurrent, severe, with psychosis: Status: Acute Code(s): F33.3 - Major depressive disorder, recurrent, severe with psychotic symptoms (2) PTSD (post-traumatic stress disorder): Status: Acute Code(s): F43.10 - Post-traumatic stress disorder, unspecified Plan Patient is a 43 year old female with hx of MDD with psychotic features and PTSD, who self presented to ER d/t increased depression secondary to medication non-compliance. Plan: CV 15 minute safety checks obtain collateral Start: Trazodone 150mg PO bedtime Gabapentin 400mg PO TID Vraylar 1.5mg PO daily discharge planning 03/12: case manager specialist present. Pt reports feeling good but a little anxious and restless ; pt stated, I'm starting to feel better. It's hard to explain but I'm feeling different than I felt when I came in here . Pt reports sleeping and eating well. denies SI/HI/VH/AH. continue current tx plan. 03/13: social problems specialistLi, present. Pt reports feeling similar to yesterday; still anxious but not as depressed ; pt stated, I'm not sure what is making me anxious. I feel like I should be doing something . pt denies SI/HI/VH/AH. Vraylar increased to 3mg PO daily. 03/14: case manager specialist and social problems specialist, Li, present. Pt reports feeling anxious but the medications are helping .pt guarded during assessment; she reports getting upset last evening d/t thinking about a situation I don't want to talk about . pt denies SI/HI/VH/AH. Family meeting scheduled with sister for 03/18/24. 03/15: continue current management and treatment plan. 03/16: continue current management and treatment plan. 03/17: Seroquel 25 mg BID PRN hallucinations. Otherwise continue current management and treatment plan. 03/18: Increase Seroqeul to 25 mg TID PRN hallucinations. 03/19: Discharge pending appointment scheduling Team will schedule VNA to assist pt with medication compliance Reason for continued inpatient stay Substantial Risk for: stable for discharge Time Spent With Patient Time: Total time managing care of this patient today ____ minutes.
[2024-03-19 20:12] VITALS: RESP 16
[2024-03-19] MEDS: traZODone HCL 50 MG TABLET 150 MG PO (20:40)
[2024-03-20] MEDS: QUEtiapine Fumarate 25 MG TABLET PO ×2 (07:28→12:26)
[2024-03-20 07:45] VITALS: BP 116/51; PULSE 87; RESP 16; TEMP 36.5; O2SAT 100
[2024-03-20] MEDS: Gabapentin 400 MG CAPSULE PO ×3 (08:40→21:35)
[2024-03-20] MEDS: Cariprazine HCl 3 MG CAPSULE PO (08:40)
[2024-03-20 09:11] VITALS: BMI 26.3
--- NOTE | 2024-03-20 09:16 | P.PNPSI_ITS ---
Subjective Subjective Date of Service: 03/20/24 Reason For Visit: Major Depression Subjective Notes: Conditional Voluntary Interim History: Reviewed with Dr. Ontiveros. oil and gas well treatment operator and forensic social worker, Li, present. Pt reports feeling good today; pt stated, I'm having some anxiety but overall I'm good . Pt reports she is looking forward to returning home and plans on following up with outpatient providers. Pt denies SI/HI/VH/AH. Social work awaiting call back for outpatient appointments. Medication Compliance: Yes Side effects from medications: No Attending Groups: No Review of Systems Constitutional: Reports as per HPI Eyes: Reports as per HPI Reports as per HPI Cardiovascular: Reports as per HPI Respiratory: Reports as per HPI Gastrointestinal: Reports as per HPI Genitourinary: Reports as per HPI Musculoskeletal: Reports as per HPI Skin/Breast: Reports as per HPI Reports as per HPI Psychiatric: Reports as per HPI Endocrine: Reports as per HPI Hematologic/Lymphatic: Reports as per HPI Allergic/Immunologic: Reports as per HPI Mental Status Exam Mental Status Exam Narrative: Pt is alert and oriented; behavior is cooperative and calm; dressed in casual attire; mood is described as good ; eye contact appropriate; Speech is normal rate, volume and prosody and not pressured; thought process is organized; Thought content is on discharge; denies SI/HI/VH/AH. Diagnostics Vital Signs (24Hr): Vital Signs - 24 hr 03/19/24 20:12 03/20/24 07:45 Temperature 97.7 F Pulse Rate 87 Respiratory Rate 16 16 Blood Pressure 116/51 L Pulse Oximetry 100 Oxygen Delivery Method Room Air BMI result Body Mass Index 26.3 Labs 03/12/24 08:09 Medications Medications Current Medications Acetaminophen (Acetaminophen 325 Mg Tablet) 650 mg PO Q6H PRN PRN Reason: Headache/Pain Mild Scale (1-3) Al Hydroxide/Mg Hydroxide (Magnesium Hydrox/Alum Hydrox 30 Ml Oral.Susp) 30 ml PO Q6H PRN PRN Reason: Heartburn/Nausea Cariprazine (Cariprazine Hcl 3 Mg Capsule) 3 mg PO DAILY [facility] Last Admin: 03/20/24 08:40 Dose: 3 mg Gabapentin (Gabapentin 400 Mg Capsule) 400 mg PO TID [facility] Last Admin: 03/20/24 08:40 Dose: 400 mg Hydroxyzine HCl (Hydroxyzine Hcl 25 Mg Tablet) 25 mg PO Q6H PRN PRN Reason: Anxiety Last Admin: 03/19/24 11:40 Dose: 25 mg Magnesium Hydroxide (Milk Of Magnesia 30 Ml Oral.Susp) 30 ml PO DAILY PRN PRN Reason: Constipation Last Admin: 03/14/24 20:20 Dose: 30 ml Nicotine Polacrilex (Nicotine Polacrilex 2 Mg Gum) 4 mg BUCCAL Q2H PRN PRN Reason: Nicotine Cravings Quetiapine Fumarate (Quetiapine Fumarate 25 Mg Tablet) 25 mg PO TID PRN PRN Reason: hallucinations Last Admin: 03/20/24 07:28 Dose: 25 mg Trazodone HCl (Trazodone Hcl 50 Mg Tablet) 150 mg PO BEDTIME [facility] Last Admin: 03/19/24 20:40 Dose: 150 mg Allergies Allergies Allergy/AdvReac Type Severity Reaction Status Date / Time No Known Allergies Allergy Verified 03/11/24 13:57 Assessment & Plan Assessment & Plan (1) MDD (major depressive disorder), recurrent, severe, with psychosis: Status: Acute Code(s): F33.3 - Major depressive disorder, recurrent, severe with psychotic symptoms (2) PTSD (post-traumatic stress disorder): Status: Acute Code(s): F43.10 - Post-traumatic stress disorder, unspecified Plan Patient is a 43 year old female with hx of MDD with psychotic features and PTSD, who self presented to ER d/t increased depression secondary to medication non- compliance. Plan: CV 15 minute safety checks obtain collateral Start: Trazodone 150mg PO bedtime Gabapentin 400mg PO TID Vraylar 1.5mg PO daily discharge planning 03/12: oil and gas well treatment operator present. Pt reports feeling good but a little anxious and restless ; pt stated, I'm starting to feel better. It's hard to explain but I'm feeling different than I felt when I came in here . Pt reports sleeping and eating well. denies SI/HI/VH/AH. continue current tx plan. 03/13: forensic social workerLi, present. Pt reports feeling similar to yesterday; still anxious but not as depressed ; pt stated, I'm not sure what is making me anxious. I feel like I should be doing something . pt denies SI/HI/VH/AH. Vraylar increased to 3mg PO daily. 03/14: oil and gas well treatment operator and forensic social workerLi, present. Pt reports feeling anxious but the medications are helping .pt guarded during assessment; she reports getting upset last evening d/t thinking about a situation I don't want to talk about . pt denies SI/HI/VH/AH. Family meeting scheduled with sister for 03/18/24. 03/15: continue current management and treatment plan. 03/16: continue current management and treatment plan. 03/17: Seroquel 25 mg BID PRN hallucinations. Otherwise continue current management and treatment plan. 03/18: Increase Seroqeul to 25 mg TID PRN hallucinations. 03/19: Discharge pending appointment scheduling Team will schedule VNA to assist pt with medication compliance 03/20: Pt reports feeling good today; pt stated, I'm having some anxiety but overall I'm good . Pt reports she is looking forward to returning home and plans on following up with outpatient providers. Pt denies SI/HI/VH/AH. Social work awaiting call back for outpatient appointments. Patient educated on: diagnosis, medication risk/benefits and therapeutic strategies Informed Consent: understands Reason for continued inpatient stay Substantial Risk for: med/psych decompensation Time Spent With Patient Time: Total time managing care of this patient today _20___ minutes.
[2024-03-20] MEDS: Acetaminophen 325 MG TABLET 650 MG PO (17:40)
[2024-03-20 19:39] VITALS: BP 96/55; PULSE 75; RESP 18; TEMP 36.9; O2SAT 100
[2024-03-20] MEDS: traZODone HCL 50 MG TABLET 150 MG PO (21:35)
[2024-03-21] MEDS: QUEtiapine Fumarate 25 MG TABLET PO ×4 (00:08→19:43)
[2024-03-21] MEDS: hydrOXYzine HCL 25 MG TABLET PO ×2 (07:00→20:19)
[2024-03-21 08:00] VITALS: BP 117/76; PULSE 85; RESP 16; TEMP 36.6; O2SAT 100
[2024-03-21] MEDS: Cariprazine HCl 3 MG CAPSULE PO (08:24)
[2024-03-21] MEDS: Gabapentin 400 MG CAPSULE PO ×3 (08:24→20:19)
--- NOTE | 2024-03-21 08:53 | HO.PSYCHPN ---
Subjective Subjective Date of Service: 03/21/24 Reason For Visit: Major Depression Subjective Notes: Conditional Voluntary Interim History: Reviewed with Dr. Ontiveros. naturopathic oncology provider and psychiatric social worker supervisor, Li, present. Pt reports feeling anxious today; pt stated, I woke up anxious and in a bad mood because I had nightmares . discussed risks/benefits of Prozosin; pt agreed to trial. Start: Prozosin 1mg PO bedtime; monitor vital signs. Pt reports she sometimes has voices ; denies any today. Pt denies SI/HI/VH/AH. Medication Compliance: Yes Side effects from medications: No Attending Groups: Intermittent Review of Systems Constitutional: Reports as per HPI Eyes: Reports as per HPI Reports as per HPI Cardiovascular: Reports as per HPI Respiratory: Reports as per HPI Gastrointestinal: Reports as per HPI Musculoskeletal: Reports as per HPI Skin/Breast: Reports as per HPI Reports as per HPI Psychiatric: Reports as per HPI Endocrine: Reports as per HPI Hematologic/Lymphatic: Reports as per HPI Allergic/Immunologic: Reports as per HPI Mental Status Exam Mental Status Exam Narrative: Pt is alert and oriented; behavior is cooperative and calm; dressed in casual attire; mood is described as anxious ; eye contact appropriate; Speech is normal rate, volume and prosody and not pressured; thought process is organized; Thought content is on discharge; denies SI/HI/VH/AH. Diagnostics Vital Signs (24Hr): Vital Signs - 24 hr 03/20/24 19:39 03/21/24 08:00 Temperature 98.5 F 97.9 F Pulse Rate 75 85 Respiratory Rate 18 16 Blood Pressure 96/55 L 117/76 Pulse Oximetry 100 100 Oxygen Delivery Method Room Air Room Air BMI result Body Mass Index 26.3 Labs 03/12/24 08:09 Medications Medications Current Medications Acetaminophen (Acetaminophen 325 Mg Tablet) 650 mg PO Q6H PRN PRN Reason: Headache/Pain Mild Scale (1-3) Last Admin: 03/20/24 17:40 Dose: 650 mg Al Hydroxide/Mg Hydroxide (Magnesium Hydrox/Alum Hydrox 30 Ml Oral.Susp) 30 ml PO Q6H PRN PRN Reason: Heartburn/Nausea Cariprazine (Cariprazine Hcl 3 Mg Capsule) 3 mg PO DAILY [facility] Last Admin: 03/21/24 08:24 Dose: 3 mg Gabapentin (Gabapentin 400 Mg Capsule) 400 mg PO TID [facility] Last Admin: 03/21/24 08:24 Dose: 400 mg Hydroxyzine HCl (Hydroxyzine Hcl 25 Mg Tablet) 25 mg PO Q6H PRN PRN Reason: Anxiety Last Admin: 03/21/24 07:00 Dose: 25 mg Magnesium Hydroxide (Milk Of Magnesia 30 Ml Oral.Susp) 30 ml PO DAILY PRN PRN Reason: Constipation Last Admin: 03/14/24 20:20 Dose: 30 ml Nicotine Polacrilex (Nicotine Polacrilex 2 Mg Gum) 4 mg BUCCAL Q2H PRN PRN Reason: Nicotine Cravings Quetiapine Fumarate (Quetiapine Fumarate 25 Mg Tablet) 25 mg PO TID PRN PRN Reason: hallucinations Last Admin: 03/21/24 06:22 Dose: 25 mg Trazodone HCl (Trazodone Hcl 50 Mg Tablet) 150 mg PO BEDTIME [facility] Last Admin: 03/20/24 21:35 Dose: 150 mg Allergies Allergies Allergy/AdvReac Type Severity Reaction Status Date / Time No Known Allergies Allergy Verified 03/11/24 13:57 Assessment & Plan Assessment & Plan (1) MDD (major depressive disorder), recurrent, severe, with psychosis: Status: Acute Code(s): F33.3 - Major depressive disorder, recurrent, severe with psychotic symptoms (2) PTSD (post-traumatic stress disorder): Status: Acute Code(s): F43.10 - Post-traumatic stress disorder, unspecified Plan Patient is a 43 year old female with hx of MDD with psychotic features and PTSD, who self presented to ER d/t increased depression secondary to medication non-compliance. Plan: CV 15 minute safety checks obtain collateral Start: Trazodone 150mg PO bedtime Gabapentin 400mg PO TID Vraylar 1.5mg PO daily discharge planning 03/12: naturopathic oncology provider present. Pt reports feeling good but a little anxious and restless ; pt stated, I'm starting to feel better. It's hard to explain but I'm feeling different than I felt when I came in here . Pt reports sleeping and eating well. denies SI/HI/VH/AH. continue current tx plan. 03/13: psychiatric social worker supervisorLi, present. Pt reports feeling similar to yesterday; still anxious but not as depressed ; pt stated, I'm not sure what is making me anxious. I feel like I should be doing something . pt denies SI/HI/VH/AH. Vraylar increased to 3mg PO daily. 03/14: naturopathic oncology provider and psychiatric social worker supervisor, Li, present. Pt reports feeling anxious but the medications are helping .pt guarded during assessment; she reports getting upset last evening d/t thinking about a situation I don't want to talk about . pt denies SI/HI/VH/AH. Family meeting scheduled with sister for 03/18/24. 03/15: continue current management and treatment plan. 03/16: continue current management and treatment plan. 03/17: Seroquel 25 mg BID PRN hallucinations. Otherwise continue current management and treatment plan. 03/18: Increase Seroqeul to 25 mg TID PRN hallucinations. 03/19: Discharge pending appointment scheduling Team will schedule VNA to assist pt with medication compliance 03/20: Pt reports feeling good today; pt stated, I'm having some anxiety but overall I'm good . Pt reports she is looking forward to returning home and plans on following up with outpatient providers. Pt denies SI/HI/VH/AH. Social work awaiting call back for outpatient appointments. 03/21: Pt reports feeling anxious today; pt stated, I woke up anxious and in a bad mood because I had nightmares . discussed risks/benefits of Prozosin; pt agreed to trial. Start: Prozosin 1mg PO bedtime; monitor vital signs. Pt reports she sometimes has voices ; denies any today. Pt denies SI/HI/VH/AH. Patient educated on: diagnosis and medication risk/benefits Informed Consent: understands Reason for continued inpatient stay Substantial Risk for: med/psych decompensation Time Spent With Patient Time: Total time managing care of this patient today _20___ minutes.
--- NOTE | 2024-03-21 19:48 | PC.NURSE ---
Jo Ann reported some minor auditory hallucinations, was given Seroquel PO prn.
[2024-03-21 20:00] VITALS: BP 108/68; PULSE 78; RESP 18; TEMP 36.9; O2SAT 100
[2024-03-21] MEDS: Prazosin HCL 1 MG CAPSULE PO (20:19)
[2024-03-21] MEDS: traZODone HCL 50 MG TABLET 150 MG PO (20:20)
[2024-03-22] MEDS: QUEtiapine Fumarate 25 MG TABLET PO ×2 (06:07→16:06)
--- NOTE | 2024-03-22 06:24 | PC.NURSE ---
Jo Ann reported some mild auditory hallucinations. Requested some Seroquel PO prn.
[2024-03-22 07:39] VITALS: BP 97/55; PULSE 77; RESP 18; TEMP 36.9; O2SAT 100
[2024-03-22] MEDS: Gabapentin 400 MG CAPSULE PO ×3 (08:13→21:44)
[2024-03-22] MEDS: Cariprazine HCl 3 MG CAPSULE PO (08:13)
--- NOTE | 2024-03-22 11:15 | HO.PSYCHPN ---
Subjective Subjective Date of Service: 03/22/24 Reason For Visit: Major Depression Subjective Notes: Conditional Voluntary Healthcare Proxy: No Guardianship: No Medical Problems Affecting Mental Status: No Interim History: Met with patient. Discussed with Nursing. Overall looking forward to discharge on Sunday. Still has some anxiety, which is higher in the morning but gets less as the day progresses. Sleep energy and appetite okay. No med concerns Medication Compliance: Yes Side effects from medications: No Attending Groups: Intermittent Review of Systems Review of Systems Yes all other systems are reviewed and are negative Mental Status Exam Mental Status Exam Narrative: Pt is alert and oriented; behavior is cooperative and calm; dressed in casual attire; mood is described as anxious ; eye contact appropriate; Speech is normal rate, volume and prosody and not pressured; thought process is organized; Thought content is on discharge; denies SI/HI/VH/AH. Diagnostics Vital Signs (24Hr): Vital Signs - 24 hr 03/21/24 20:00 03/22/24 07:39 Temperature 98.4 F 98.4 F Pulse Rate 78 77 Respiratory Rate 18 18 Blood Pressure 108/68 97/55 L Pulse Oximetry 100 100 Oxygen Delivery Method Room Air Room Air BMI result Body Mass Index 26.3 Labs 03/12/24 08:09 Medications Medications Current Medications Acetaminophen (Acetaminophen 325 Mg Tablet) 650 mg PO Q6H PRN PRN Reason: Headache/Pain Mild Scale (1-3) Last Admin: 03/20/24 17:40 Dose: 650 mg Al Hydroxide/Mg Hydroxide (Magnesium Hydrox/Alum Hydrox 30 Ml Oral.Susp) 30 ml PO Q6H PRN PRN Reason: Heartburn/Nausea Cariprazine (Cariprazine Hcl 3 Mg Capsule) 3 mg PO DAILY [facility] Last Admin: 03/22/24 08:13 Dose: 3 mg Gabapentin (Gabapentin 400 Mg Capsule) 400 mg PO TID [facility] Last Admin: 03/22/24 08:13 Dose: 400 mg Hydroxyzine HCl (Hydroxyzine Hcl 25 Mg Tablet) 25 mg PO Q6H PRN PRN Reason: Anxiety Last Admin: 03/21/24 20:19 Dose: 25 mg Magnesium Hydroxide (Milk Of Magnesia 30 Ml Oral.Susp) 30 ml PO DAILY PRN PRN Reason: Constipation Last Admin: 03/14/24 20:20 Dose: 30 ml Nicotine Polacrilex (Nicotine Polacrilex 2 Mg Gum) 4 mg BUCCAL Q2H PRN PRN Reason: Nicotine Cravings Prazosin HCl (Prazosin Hcl 1 Mg Capsule) 1 mg PO BEDTIME [facility]; Protocol Last Admin: 03/21/24 20:19 Dose: 1 mg Quetiapine Fumarate (Quetiapine Fumarate 25 Mg Tablet) 25 mg PO TID PRN PRN Reason: hallucinations Last Admin: 03/22/24 06:07 Dose: 25 mg Trazodone HCl (Trazodone Hcl 50 Mg Tablet) 150 mg PO BEDTIME [facility] Last Admin: 03/21/24 20:20 Dose: 150 mg Allergies Allergies Allergy/AdvReac Type Severity Reaction Status Date / Time No Known Allergies Allergy Verified 03/11/24 13:57 Assessment & Plan Assessment & Plan (1) MDD (major depressive disorder), recurrent, severe, with psychosis: Status: Acute Code(s): F33.3 - Major depressive disorder, recurrent, severe with psychotic symptoms (2) PTSD (post-traumatic stress disorder): Status: Acute Code(s): F43.10 - Post-traumatic stress disorder, unspecified Plan Patient is a 43 year old female with hx of MDD with psychotic features and PTSD, who self presented to ER d/t increased depression secondary to medication non-compliance. Plan: CV 15 minute safety checks obtain collateral Start: Trazodone 150mg PO bedtime Gabapentin 400mg PO TID Vraylar 1.5mg PO daily discharge planning 03/12: program aide present. Pt reports feeling good but a little anxious and restless ; pt stated, I'm starting to feel better. It's hard to explain but I'm feeling different than I felt when I came in here . Pt reports sleeping and eating well. denies SI/HI/VH/AH. continue current tx plan. 03/13: executive secretary social welfareLi, present. Pt reports feeling similar to yesterday; still anxious but not as depressed ; pt stated, I'm not sure what is making me anxious. I feel like I should be doing something . pt denies SI/HI/VH/AH. Vraylar increased to 3mg PO daily. 03/14: program aide and executive secretary social welfareLi, present. Pt reports feeling anxious but the medications are helping .pt guarded during assessment; she reports getting upset last evening d/t thinking about a situation I don't want to talk about . pt denies SI/HI/VH/AH. Family meeting scheduled with sister for 03/18/24. 03/15: continue current management and treatment plan. 03/16: continue current management and treatment plan. 03/17: Seroquel 25 mg BID PRN hallucinations. Otherwise continue current management and treatment plan. 03/18: Increase Seroqeul to 25 mg TID PRN hallucinations. 03/19: Discharge pending appointment scheduling Team will schedule VNA to assist pt with medication compliance 03/20: Pt reports feeling good today; pt stated, I'm having some anxiety but overall I'm good . Pt reports she is looking forward to returning home and plans on following up with outpatient providers. Pt denies SI/HI/VH/AH. Social work awaiting call back for outpatient appointments. 03/21: Pt reports feeling anxious today; pt stated, I woke up anxious and in a bad mood because I had nightmares . discussed risks/benefits of Prozosin; pt agreed to trial. Start: Prozosin 1mg PO bedtime; monitor vital signs. Pt reports she sometimes has voices ; denies any today. Pt denies SI/HI/VH/AH. 03/22/2024: No changes Reason for continued inpatient stay Substantial Risk for: rapid decompensation Time Spent With Patient Time: Total time managing care of this patient today ____ minutes.
[2024-03-22] MEDS: Milk of Magnesia 30 ML ORAL.SUSP PO (14:18)
[2024-03-22] MEDS: bisacodyL 5 MG TABLET.DR 10 MG PO (17:22)
[2024-03-22 21:40] VITALS: BP 116/68; PULSE 84; RESP 16; TEMP 36.5; O2SAT 100
[2024-03-22] MEDS: Prazosin HCL 1 MG CAPSULE PO (21:44)
[2024-03-22] MEDS: traZODone HCL 50 MG TABLET 150 MG PO (21:44)
[2024-03-23 07:10] VITALS: BP 115/59; PULSE 101; RESP 16; TEMP 36.6; O2SAT 100
[2024-03-23] MEDS: Cariprazine HCl 3 MG CAPSULE PO (08:39)
[2024-03-23] MEDS: Gabapentin 400 MG CAPSULE PO ×3 (08:39→21:08)
[2024-03-23] MEDS: QUEtiapine Fumarate 25 MG TABLET PO (08:47)
--- NOTE | 2024-03-23 11:14 | P.PNPSI_ITS ---
Subjective Subjective Date of Service: 03/23/24 Reason For Visit: Major Depression Interim History: Met with patient. Discussed with Nursing. Overall looking forward to discharge tomorrow. Much less anxious today. Much less hallucinations. Sometimes in the morning. No longer in the daytime. Occasionally at nighttime. Non command. Sleep is good. No med concerns Medication Compliance: Yes Side effects from medications: No Attending Groups: Yes Review of Systems Acute medical concerns: No Review of Systems Review of Systems Yes all other systems are reviewed and are negative Mental Status Exam Mental Status Exam Narrative: Pt is alert and oriented; behavior is cooperative and calm; dressed in casual attire; mood is described as anxious ; eye contact appropriate; Speech is normal rate, volume and prosody and not pressured; thought process is organized; Thought content is on discharge; denies SI/HI/VH. Less frequent and intense auditory hallucinations. Insight and judgment good Diagnostics Vital Signs (24Hr): Vital Signs - 24 hr 03/22/24 21:40 03/23/24 07:10 Temperature 97.7 F 97.9 F Pulse Rate 84 101 H Respiratory Rate 16 16 Blood Pressure 116/68 115/59 L Pulse Oximetry 100 100 Oxygen Delivery Method Room Air Room Air BMI result Body Mass Index 26.3 Labs 03/12/24 08:09 Medications Medications Current Medications Acetaminophen (Acetaminophen 325 Mg Tablet) 650 mg PO Q6H PRN PRN Reason: Headache/Pain Mild Scale (1-3) Last Admin: 03/20/24 17:40 Dose: 650 mg Al Hydroxide/Mg Hydroxide (Magnesium Hydrox/Alum Hydrox 30 Ml Oral.Susp) 30 ml PO Q6H PRN PRN Reason: Heartburn/Nausea Bisacodyl (Bisacodyl 5 Mg Tablet.Dr) 10 mg PO DAILY PRN PRN Reason: Constipation Last Admin: 03/22/24 17:22 Dose: 10 mg Cariprazine (Cariprazine Hcl 3 Mg Capsule) 3 mg PO DAILY [facility] Last Admin: 03/23/24 08:39 Dose: 3 mg Gabapentin (Gabapentin 400 Mg Capsule) 400 mg PO TID [facility] Last Admin: 03/23/24 08:39 Dose: 400 mg Hydroxyzine HCl (Hydroxyzine Hcl 25 Mg Tablet) 25 mg PO Q6H PRN PRN Reason: Anxiety Last Admin: 03/21/24 20:19 Dose: 25 mg Magnesium Hydroxide (Milk Of Magnesia 30 Ml Oral.Susp) 30 ml PO DAILY PRN PRN Reason: Constipation Last Admin: 03/22/24 14:18 Dose: 30 ml Nicotine Polacrilex (Nicotine Polacrilex 2 Mg Gum) 4 mg BUCCAL Q2H PRN PRN Reason: Nicotine Cravings Prazosin HCl (Prazosin Hcl 1 Mg Capsule) 1 mg PO BEDTIME [facility]; Protocol Last Admin: 03/22/24 21:44 Dose: 1 mg Quetiapine Fumarate (Quetiapine Fumarate 25 Mg Tablet) 25 mg PO TID PRN PRN Reason: hallucinations Last Admin: 03/23/24 08:47 Dose: 25 mg Trazodone HCl (Trazodone Hcl 50 Mg Tablet) 150 mg PO BEDTIME [facility] Last Admin: 03/22/24 21:44 Dose: 150 mg Allergies Allergies Allergy/AdvReac Type Severity Reaction Status Date / Time No Known Allergies Allergy Verified 03/11/24 13:57 Assessment & Plan Assessment & Plan (1) MDD (major depressive disorder), recurrent, severe, with psychosis: Status: Acute Code(s): F33.3 - Major depressive disorder, recurrent, severe with psychotic symptoms (2) PTSD (post-traumatic stress disorder): Status: Acute Code(s): F43.10 - Post-traumatic stress disorder, unspecified Plan Patient is a 43 year old female with hx of MDD with psychotic features and PTSD, who self presented to ER d/t increased depression secondary to medication non- compliance. Plan: CV 15 minute safety checks obtain collateral Start: Trazodone 150mg PO bedtime Gabapentin 400mg PO TID Vraylar 1.5mg PO daily discharge planning 03/12: manager clinical informatics present. Pt reports feeling good but a little anxious and restless ; pt stated, I'm starting to feel better. It's hard to explain but I'm feeling different than I felt when I came in here . Pt reports sleeping and eating well. denies SI/HI/VH/AH. continue current tx plan. 03/13: social media designerLi, present. Pt reports feeling similar to yesterday; still anxious but not as depressed ; pt stated, I'm not sure what is making me anxious. I feel like I should be doing something . pt denies SI/HI/VH/AH. Vraylar increased to 3mg PO daily. 03/14: manager clinical informatics and social media designer, Li, present. Pt reports feeling anxious but the medications are helping .pt guarded during assessment; she reports getting upset last evening d/t thinking about a situation I don't want to talk about . pt denies SI/HI/VH/AH. Family meeting scheduled with sister for 03/18/24. 03/15: continue current management and treatment plan. 03/16: continue current management and treatment plan. 03/17: Seroquel 25 mg BID PRN hallucinations. Otherwise continue current management and treatment plan. 03/18: Increase Seroqeul to 25 mg TID PRN hallucinations. 03/19: Discharge pending appointment scheduling Team will schedule VNA to assist pt with medication compliance 03/20: Pt reports feeling good today; pt stated, I'm having some anxiety but overall I'm good . Pt reports she is looking forward to returning home and plans on following up with outpatient providers. Pt denies SI/HI/VH/AH. Social work awaiting call back for outpatient appointments. 03/21: Pt reports feeling anxious today; pt stated, I woke up anxious and in a bad mood because I had nightmares . discussed risks/benefits of Prozosin; pt agreed to trial. Start: Prozosin 1mg PO bedtime; monitor vital signs. Pt reports she sometimes has voices ; denies any today. Pt denies SI/HI/VH/AH. 03/22/2024: No changes 03/23/2024: no changes Reason for continued inpatient stay Substantial Risk for: rapid decompensation Time Spent With Patient Time: Total time managing care of this patient today ____ minutes.
[2024-03-23 20:39] VITALS: BP 104/68; PULSE 74; RESP 16; TEMP 36.8; O2SAT 100
[2024-03-23] MEDS: Prazosin HCL 1 MG CAPSULE PO (21:08)
[2024-03-23] MEDS: traZODone HCL 50 MG TABLET 150 MG PO (21:08)
[2024-03-24] MEDS: QUEtiapine Fumarate 25 MG TABLET PO (04:15)
[2024-03-24 07:39] VITALS: BP 101/57; PULSE 82; RESP 16; TEMP 36.8; O2SAT 100
[2024-03-24] MEDS: Cariprazine HCl 3 MG CAPSULE PO (08:05)
[2024-03-24] MEDS: Gabapentin 400 MG CAPSULE PO (08:05)
--- NOTE | 2024-03-24 09:14 | P.DS_ITS ---
DS: Providers Provider Date of Service: 03/24/24 Date of admission: 03/11/24 13:30 Date of discharge: 03/24/24 Primary care physician: Unknown Physician Admitting clinician: Emilee Tidwell Attending physician on admission: Jagdeep Ontiveros Consults: 03/11/24 14:17 Consult to Hospitalist Routine Comment: Consulting Provider: Hospitalist Reason For Exam: H&P, new admit. Attending physician on discharge: Jagdeep Ontiveros Discharging clinician: Emilee Tidwell DS: Diagnosis Discharge Diagnosis (1) MDD (major depressive disorder), recurrent, severe, with psychosis: Status: Acute (2) PTSD (post-traumatic stress disorder): Status: Acute DS: Medications Discharge Medications Home Medications: Previous Rx's ?Medication ?Instructions ?Recorded cariprazine 3 mg capsule (Vraylar) 3 mg PO DAILY 30 days #30 caps 03/24/24 gabapentin 400 mg capsule 400 mg PO TID 30 days #90 caps 03/24/24 prazosin 1 mg capsule 1 mg PO BEDTIME 30 days #30 caps 03/24/24 trazodone 150 mg tablet 150 mg PO BEDTIME 30 days #30 tabs 03/24/24 Mental Status Exam Mental Status Exam Narrative: Pt is alert and oriented; behavior is cooperative and calm; dressed in casual attire; mood is described as good ; eye contact appropriate; Speech is normal rate, volume and prosody and not pressured; thought process is organized; Thought content is on discharge; denies SI/HI/VH/AH. DS: Summary Hospital Course Hospital Course: Patient is a 43 year old female with hx of MDD with psychotic features and PTSD, who self presented to ER d/t increased depression secondary to medication non- compliance. Per crisis report, per patient's boyfriend, pt stopped her medications a month ago and seeing her outpatient providers. He reports the patient will leave the house and roam the streets for hours. He stated he had put in a missing person's alert to the police. Per report, pt has not been making sense and needing help with ADL's. UTOX positive for cannabinoids. During admission assessment, heel cover softener present. Pt presents alert and oriented, calm, cooperative. Pt reports feeling depressed and anxious ; pt stated, I've been different than I normally am. I am fighting with my boyfriend . Patient stated, I stopped taking the medications because I felt better ; pt educated regarding importance of medication compliance. Pt reports she has an outpatient therapist and psychiatrist. Pt denies SI/HI/VH/AH. Pt stated, my goal is to get on my meds, feel better and go back home . Discussed hx of medications; pt agreed to restarting home medications. During hospital course, CV 15 minute safety checks obtain collateral Start: Trazodone 150mg PO bedtime Gabapentin 400mg PO TID Vraylar 1.5mg PO daily discharge planning heel cover softener present. Pt reports feeling good but a little anxious and restless ; pt stated, I'm starting to feel better. It's hard to explain but I'm feeling different than I felt when I came in here . Pt reports sleeping and eating well. denies SI/HI/VH/AH. continue current tx plan. director social welfareLi, present. Pt reports feeling similar to yesterday; still anxious but not as depressed ; pt stated, I'm not sure what is making me anxious. I feel like I should be doing something . pt denies SI/HI/VH/AH. Vraylar increased to 3mg PO daily. heel cover softener and director social welfareLi, present. Pt reports feeling anxious but the medications are helping .pt guarded during assessment; she rep orts getting upset last evening d/t thinking about a situation I don't want to talk about . pt denies SI/HI/VH/AH. Family meeting scheduled with sister for 03/18/24. Seroquel 25 mg BID PRN hallucinations. Otherwise continue current management and treatment plan. Increase Seroqeul to 25 mg TID PRN hallucinations. Discharge pending appointment scheduling Team will schedule VNA to assist pt with medication compliance pt reports feeling good today; pt stated, I'm having some anxiety but overall I'm good . Pt reports she is looking forward to returning home and plans on following up with outpatient providers. Pt denies SI/HI/VH/AH. Social work awaiting call back for outpatient appointments. Pt reports feeling anxious today; pt stated, I woke up anxious and in a bad mood because I had nightmares . discussed risks/benefits of Prozosin; pt agreed to trial. Start: Prozosin 1mg PO bedtime; monitor vital signs. Pt reports she sometimes has voices ; denies any today. Pt denies SI/HI/VH/AH. Pt reports feeling good today and ready to go home . Pt denies SI/HI/VH/AH. Pt reports she plans on following up with her outpatient providers. Time spent discussing smoking cessation with patient: 3 to 10 minutes Status at Discharge Cognitive/behavioral status at discharge: Patient was interviewed prior to discharge and found to be fully oriented and without SI or HI. Patient has insight and demonstrates good judgment in terms of wanting to pursue treatment. Patient has a safety plan that includes presenting to the closest ER or calling 911 if feeling unsafe. Functional status at discharge: independent ambulation Overall status at discharge: patient is back to baseline Time Spent with Patient Time attestation: Total time managing care of this patient today _20___ minutes. Time spent: Less than 30 minutes Discharge Plan Discharge Anticipated Discharge Date/Time: 03/24/24 11:00 Patient Disposition: Home, Self-Care Discharge Diagnosis: MDD,PTSD Referrals: [facility] (Intake Appointment) [Other] - 04/03/24 11:00 am Physician,Rajeev Melo [Primary Care Provider] - 1 Week (Pt to follow up with [facility] walk-in clinic. Sunday-Sunday 8am-4pm) Discharge Medications: New Vraylar 3 mg Capsule 3 mg PO DAILY 30 Days Qty: 30 0RF prazosin 1 mg Capsule 1 mg PO BEDTIME 30 Days Qty: 30 0RF Protocol: Hold for SBP< HOLD for SBP < : 90 Continued gabapentin 400 mg capsule 400 mg PO TID 30 Days Qty: 90 0RF trazodone 150 mg tablet 150 mg PO BEDTIME 30 Days Qty: 30 0RF Discontinued Vraylar 4.5 mg capsule 4.5 mg PO DAILY Discharge Orders: Discharge Order (Routine); Ordered 03/24/24 Ordered By: Emilee Tidwell Diet: Regular diet Activity on Discharge: As tolerated Stand Alone Forms: Patient Portal Discharge page, Community Support Print Language: Hungarian Care Plan Goals: Maintain mood and safe behaviors Take medications as prescribed Practice coping skills Continue with outpatient providers and reach out to them as needed Health Concerns: Mood stability and behaviors Plan of Treatment: Follow up with your PCP, psychiatric provider and other outpatient providers regarding above concerns Take medications as prescribed Assessment: Patient was interviewed prior to discharge and found to be fully oriented and without SI or HI. Patient has insight and demonstrates good judgment in terms of wanting to pursue treatment. Patient has a safety plan that includes presenting to the closest ER or calling 911 if feeling unsafe. Discharge Date/Time: 03/24/24 11:00
== END 2024-03-24 11:00 | disposition home or self-care (01) | DRG 885 ==
PROVIDERS: Admitting Provider Psychiatry & Neurology Psychiatry; Responsible Provider Registered Nurse; Visit Provider Psychiatry & Neurology Psychiatry
DX: F33.3 Major depressive disorder, recurrent, severe with psychotic symptoms (principal); F43.10 Post-traumatic stress disorder, unspecified; F17.210 Nicotine dependence, cigarettes, uncomplicated; Z71.6 Tobacco abuse counseling; Z91.148 Patient's other noncompliance with medication regimen for other reason; Z79.899 Other long term (current) drug therapy
CPT/HCPCS: 36415; 80053; 80061

== ENCOUNTER → 2024-03-11 13:30 | Outpatient (BNV) | payer MEDICARE, MEDICAID, SELFPAY | PROVIDERS: Admitting Provider Psychiatry & Neurology Psychiatry; Responsible Provider Registered Nurse; Visit Provider Physician Assistant | DX: F39 Unspecified mood [affective] disorder (principal); F17.210 Nicotine dependence, cigarettes, uncomplicated | CPT/HCPCS: 99222 ==

== ENCOUNTER → 2024-03-11 13:30 | Outpatient (BNV) | payer OTHER, SELFPAY | PROVIDERS: Admitting Provider Psychiatry & Neurology Psychiatry; Responsible Provider Registered Nurse; Visit Provider Registered Nurse | DX: F33.3 Major depressive disorder, recurrent, severe with psychotic symptoms (principal); F43.11 Post-traumatic stress disorder, acute | CPT/HCPCS: 90792; 99231; 99232; 99238 ==

== ENCOUNTER 2025-01-07 13:35 | Inpatient (IN) | payer OTHER, MEDICAID, SELFPAY ==
[2025-01-07 14:45] VITALS: BMI 27.2
[2025-01-07 14:46] VITALS: BP 127/80; PULSE 65; RESP 18; TEMP 36.6; O2SAT 98
--- NOTE | 2025-01-07 16:46 | PC.ADMIT ---
Jo Ann is a bilingual speaking female with sri lankan as her primary language who was admitted to at 1354 from [facility] on a CV for treatment of Bipolar d/o with psychosis. Sister reported pt has had increased bizarre behavior, trying to jump out of the 4th floor window, trying to sell her body on the streets and accusing her friend of lacing her marijuana with cocaine. Pt denies using cocaine and says her friend ?likes to play play jokes and put drugs in others marijuana.? Pt was A&O x3,calm and cooperative. Pt had poor focus, labile mood and affect. Pt denied AVH but, appears internally preoccupied with some thought blocking.? Pt denied SI and any ideation, plan or intent to harm self or others. Pt reports a good appetite, denies any weight gain or loss. Carlotta reports her sleep as ?ok?, 4-5 hours/night. She denies any trauma history, denies nightmares. Tox screen positive for cocaine and THC, pt became angry when discussing being positive for cocaine. Pt denies any medical concerns at this time. She says her goal is to ?get away from the stress outside, relax, and help my mood.? Skin check completed, skin is intact. Pt placed on 15 minute safety checks. Pt refused flue vaccine.
[2025-01-07 19:20] VITALS: BP 111/68; PULSE 72; RESP 18; TEMP 36.8; O2SAT 100
[2025-01-07] MEDS: Gabapentin 300 MG CAPSULE PO (20:59)
[2025-01-07] MEDS: Mirtazapine 7.5 MG TABLET PO (20:59)
[2025-01-07] MEDS: traZODone HCL 50 MG TABLET 150 MG PO (20:59)
[2025-01-07] MEDS: Prazosin HCL 1 MG CAPSULE PO (20:59)
[2025-01-07] MEDS: busPIRone HCl 5 MG TABLET PO (20:59)
[2025-01-08] MEDS: hydrOXYzine HCL 25 MG TABLET PO (06:44)
[2025-01-08 07:00] VITALS: BMI 27.6
[2025-01-08 07:40] VITALS: BP 115/62; PULSE 72; RESP 16; TEMP 36.4; O2SAT 100
[2025-01-08 08:38] LABS: MANUAL DIFF FLAG NO
[2025-01-08 08:43] LABS: Basophils Absolute Auto 0.1 X10*3/uL (0.0-0.2); Basophils Percent Auto 0.7 % (0-2); Eosinophils Absolute Auto 0.2 X10*3/uL (0.0-0.4); Eosinophils Percent Auto 2.2 % (0-4); Hematocrit 34.8 % (37.0-47.0); Hemoglobin 11.4 g/dl (12.0-16.0); Imm Gran Abs Auto 0.03 X10*3/uL (0.00-0.03); Imm Gran Pct Auto 0.4 % (0.0-0.4); Lymphocytes Absolute Auto 2.5 X10*3/uL (1.2-4.9); Lymphocytes Percent Auto 34.1 % (20-40); Mean Corpuscular HGB Conc 32.8 g/dl (31.0-35.0); Mean Corpuscular Hemoglobin 27.1 pg (27.0-33.0); Mean Corpuscular Volume 82.7 fL (80.0-98.0); Mean Platelet Volume 9.2 fL (9.4-12.3); Monocytes Absolute Auto 0.5 X10*3/uL (0.1-1.2); Monocytes Percent Auto 6.8 % (2-11); Neutrophils Percent Auto 55.8 % (45-73); Platelet Count 283 X10*3/uL (160-400); Red Blood Count 4.21 X10*6/uL (4.20-5.50); Red Cell Distribution Width 15.5 % (11.0-16.0); White Blood Count 7.2 X10*3/uL (4.8-10.8)
[2025-01-08] MEDS: Gabapentin 300 MG CAPSULE PO (08:52)
[2025-01-08] MEDS: Cariprazine HCl 3 MG CAPSULE PO (08:52)
[2025-01-08] MEDS: busPIRone HCl 5 MG TABLET PO (08:52)
[2025-01-08 09:07] LABS: Estimated Average Glucose 100 mg/dL; Hemoglobin A1c % 5.1 % (<6.0)
[2025-01-08 10:13] LABS: Folate 7.8 ng/mL (> or = 4.0); Vitamin B12 503 pg/mL (200-900)
--- NOTE | 2025-01-08 13:15 | HO.PSYADMNOT ---
HPI Date of Service: 01/08/25 Chief Complaint: Mood disorder HPI Narrative: per [facility] records, pt was sent to ED by her friends and sister for eval due to altered mental status and bizarre behavior. per report from sister, pt attempted to jump from a 4th floor window and has gone missing a few times. sister reports pt's BF has been plying her with drugs - cocaine and cannabis that is laced with something. pt was found in the street trying to sell her body, per sister. sister expressed concern that pt's BF is violent and controlling. on interview with pt, she is voluble but not pressured. she reports she is here for help with her mood, sometimes it is too high or she is too angry. reporting h/o bipolar disorder. educated re VPA as mood stabilizer, agrees to trial. willing to DC gabapentin and buspar as not indicated. no safety concerns at present. Past Psychiatric History: Hx of multiple inpatient psychiatric hospitalizations: [facility], [facility], [facility], [facility]. SA: denies SIB: denies HIB: denies outpt: reports last in [place] at [facility] about a month ago with therapist. stopped meds about 2 months ago. Medical Evaluation Reviewed: Yes [facility] Medical History (Updated 01/08/25 @ 17:03 by Jagdeep Ontiveros MD) Routine medical exam No pertinent past medical history Family History: brother: hx of substance abuse. Social History: lives alone in an apartment in [place]. rents. bachelor's degree in criminal justice. not working. last working about 4-5 years ago making [employer]. on SSDI now. Substance History: tobacco - denies use alcohol - drinks 1-2 days per week, a bottle of wine or a 6-pack of beer on each occasion. cannabis - 1x/wk cocaine - denies use, utox POS. opioids - denies stimulants - denies denies the use of other substances of abuse Trauma History: per [facility] records, endorses h/o trauma, denies childhood sexual abuse. Diagnostics Vital Signs (24Hr): Vital Signs - 24 hr 01/07/25 14:46 01/07/25 19:20 01/08/25 07:40 Temperature 97.8 F 98.2 F 97.6 F Pulse Rate 65 72 72 Respiratory Rate 18 18 16 Blood Pressure 127/80 111/68 115/62 Pulse Oximetry 98 100 100 Oxygen Delivery Method Room Air Room Air Room Air BMI result Body Mass Index 27.2 Labs 01/08/25 08:13 Labs: Laboratory Results - last 48 hr 01/08/25 08:13 WBC 7.2 RBC 4.21 Hgb 11.4 L Hct 34.8 L MCV 82.7 MCH 27.1 MCHC 32.8 RDW 15.5 Plt Count 283 MPV 9.2 L Immature Gran % (Auto) 0.4 Neut % (Auto) 55.8 Lymph % (Auto) 34.1 Payne % (Auto) 6.8 Eos % (Auto) 2.2 Baso % (Auto) 0.7 Lymph # (Auto) 2.5 Payne # (Auto) 0.5 Eos # (Auto) 0.2 Baso # (Auto) 0.1 Abs Immat Gran (auto) 0.03 Absolute Neuts (auto) 4.0 Absolute Nucleated RBC 0.000 Nucleated RBC % (auto) 0.0 Estimat Average Glucose 100 Hemoglobin A1c % 5.1 Vitamin B12 503 Folate 7.8 Meds/Allergies Meds Home Medications ?Medication ?Instructions ?Recorded ?Confirmed ?Type buspirone 15 mg PO BID 01/07/25 01/07/25 History mirtazapine 15 mg PO BEDTIME 01/07/25 01/07/25 History norethindrone (contraceptive) 0.35 mg PO DAILY 01/07/25 01/07/25 History Allergies Allergies Allergy/AdvReac Type Severity Reaction Status Date / Time No Known Allergies Allergy Verified 03/11/24 13:57 Mental Status Exam Mental Status Exam Narrative: Pt is alert and oriented; behavior is cooperative and calm; dressed in casual attire; mood is described as a little anxious. eye contact appropriate; Speech is normal rate, volume and prosody and not pressured; thought process is organized; Thought content is on Tx; denies SI/HI/VH/AH. Assessment & Plan Assessment & Plan (1) Alcohol use: Status: Acute Code(s): F10.90 - Alcohol use, unspecified, uncomplicated (2) Cocaine use: Status: Acute Code(s): F14.90 - Cocaine use, unspecified, uncomplicated (3) Mood disorder: Status: Acute Code(s): F39 - Unspecified mood [affective] disorder Plan start depakote ER 1000 mg QHS for mood stabilization. DC gabapentin 300 TID as not indicated. DC buspar 5 BID as not indicated. continue other home meds. stabilize, return to community. Patient educated on: diagnosis, medication risk/benefits and substance abuse Reason for continued inpatient stay Substantial Risk for: harm to self, harm to others and inability to function Statement Statement: I have reviewed the history and physical and performed a pertinent examination on my patient. No changes have occurred unless specified. If the History and Physical was not performed prior to admission, the Hospitalist's service will be consulted for completing the admission physical. Time Spent With Patient Time: Total time managing care of this patient today _55___ minutes.
--- NOTE | 2025-01-08 13:48 | P.CONHOSP_ITS ---
History of Present Illness Data of Consult Service Date: 01/08/25 Primary Care Provider: Unknown Physician HPI Reason for consult: Admission H&P Pt is a 44-year-old Congolese-speaking female with a PMH significant for MDD with psychotic features and PTSD who is admitted to [facility] psychiatry unit for acting bizarre and altered above baseline. Sister apparently reported the pt attempted to jump audibly 4th floor window and has been indulging in cocaine cannabis recently. Medical consult for admission H&P. Pt denies any acute medical complaints, and reports overall feels ?good?. Denies nausea, vomiting, abdominal pain. No SOB or difficulty breathing. No cough. Denies chest pain/pressure, palpitations. No headache or acute vision changes. Labs reviewed, grossly and around baseline for pt. No leukocytosis. No significant electrolyte abnormalities. Stable H&H. Renal and hepatic function WNL. Vitals reviewed, stable and WNL. Review of Systems 2 Review of Systems: Pt has no acute or chronic medical complaints at this time. [facility] Medical History (Updated 01/08/25 @ 19:07 by BLAS Carvajal) Routine medical exam No pertinent past medical history Social History Household Members: Other Household Members Other:: boy friend Housing: Apartment Do you presently have visiting nurse or other home services: No Patient Tobacco Use Status: Former Tobacco user Tobacco use type: Cigarette Smoked in Last 30 Days: No Patient Interested in Nicotine Replacement: No Patient Given Instructions on How to Stop Smoking: Yes Date Education Initiated: 01/07/25 Second Hand Smoke Exposure: Yes Use of substances other than those prescribed or required for medical reasons: Yes Substance Use Type: Crack/Cocaine and Marijuana Substance Use Frequency: Chronic Longstanding Last Used Substance: Days (ago) Last Used Substance Other:: 4 days ago Currently Displaying Signs/Symptoms of Drug Intoxication Withdrawal: No Any prior treatment program specific to substance use: No Have you been hit, kicked, punched, or otherwise hurt by someone within the past year? If so, by whom?: No Do you feel safe in your current relationship?: Yes Is there a partner from a previous relationship who is making you feel unsafe now?: No Advance Directives: No Advance Directives Information Provided: Yes Do you have thoughts of harming others: None Do you have a plan to hurt others: No Plan Recently lost weight without trying: No Eating poorly because of decreased appetite: No Nutrition Risks: No Nutritional Risk Patient : No : No Poor oral hygiene: No service: No Sexual orientation: Straight/Heterosexual Meds Allergies Allergy/AdvReac Type Severity Reaction Status Date / Time No Known Allergies Allergy Verified 03/11/24 13:57 Active Medications: Current Medications Acetaminophen (Acetaminophen 325 Mg Tablet) 650 mg PO Q6H PRN PRN Reason: Headache/Pain, Scale 1-10 Al Hydroxide/Mg Hydroxide (Magnesium Hydrox/Alum Hydrox 30 Ml Oral.Susp) 30 ml PO Q6H PRN PRN Reason: Heartburn/Nausea Buspirone HCl (Buspirone Hcl 5 Mg Tablet) 5 mg PO BID [facility] Last Admin: 01/08/25 08:52 Dose: 5 mg Cariprazine (Cariprazine Hcl 3 Mg Capsule) 3 mg PO DAILY [facility] Last Admin: 01/08/25 08:52 Dose: 3 mg Gabapentin (Gabapentin 300 Mg Capsule) 300 mg PO TID [facility] Last Admin: 01/08/25 08:52 Dose: 300 mg Hydroxyzine HCl (Hydroxyzine Hcl 25 Mg Tablet) 25 mg PO Q6H PRN PRN Reason: mild anxiety Last Admin: 01/08/25 06:44 Dose: 25 mg Magnesium Hydroxide (Milk Of Magnesia 30 Ml Oral.Susp) 30 ml PO DAILY PRN PRN Reason: Constipation Mirtazapine (Mirtazapine 7.5 Mg Tablet) 7.5 mg PO BEDTIME [facility] Last Admin: 01/07/25 20:59 Dose: 7.5 mg Nicotine Polacrilex (Nicotine Polacrilex 2 Mg Gum) 4 mg BUCCAL Q2H PRN PRN Reason: Nicotine Cravings Non-Formulary Medication (Norethindrone) 0.35 mg PO DAILY [facility] Prazosin HCl (Prazosin Hcl 1 Mg Capsule) 1 mg PO BEDTIME [facility]; Protocol Last Admin: 01/07/25 20:59 Dose: 1 mg Trazodone HCl (Trazodone Hcl 50 Mg Tablet) 50 mg PO BEDTIME MRX1 PRN PRN Reason: Insomnia Trazodone HCl (Trazodone Hcl 50 Mg Tablet) 150 mg PO BEDTIME [facility] Last Admin: 01/07/25 20:59 Dose: 150 mg Home Medications ?Medication ?Instructions ?Recorded ?Confirmed ?Last Taken ?Type buspirone 15 mg PO BID 01/07/25 01/07/25 Unknown History mirtazapine 15 mg PO BEDTIME 01/07/25 01/07/25 Unknown History norethindrone (contraceptive) 0.35 mg PO DAILY 01/07/25 01/07/25 Unknown History Physical Exam 2 Vital Signs and Narrative: Vital Signs: Last Vital Signs Temp 97.6 F 01/08/25 07:40 Pulse 72 01/08/25 07:40 Resp 16 01/08/25 07:40 BP 115/62 01/08/25 07:40 Pulse Ox 100 01/08/25 07:40 O2 Del Method Room Air 01/08/25 07:40 BMI result Body Mass Index 27.6 General: AOx3, no acute distress Resp: CTA bilaterally CVS: S1, S2, RRR GI: +BS, NT, no distention Skin: Warm, dry Neuro: Cranial nerves II-XII grossly intact bilaterally. Motor grossly intact bilaterally. No focal deficits noted. Extremities: No edema Psych: Calm, cooperative Results Labs 01/08/25 08:13 Labs: Laboratory Results - last 24 hr 01/08/25 08:13 MCV 82.7 MCH 27.1 MCHC 32.8 RDW 15.5 Plt Count 283 MPV 9.2 L Immature Gran % (Auto) 0.4 Neut % (Auto) 55.8 Lymph % (Auto) 34.1 [place] % (Auto) 6.8 Eos % (Auto) 2.2 Baso % (Auto) 0.7 Lymph # (Auto) 2.5 [place] # (Auto) 0.5 Eos # (Auto) 0.2 Baso # (Auto) 0.1 Abs Immat Gran (auto) 0.03 Absolute Neuts (auto) 4.0 Absolute Nucleated RBC 0.000 Nucleated RBC % (auto) 0.0 Estimat Average Glucose 100 Hemoglobin A1c % 5.1 Vitamin B12 503 Folate 7.8 Assessment and Plan (1) Medical clearance for psychiatric admission: Status: Acute Plan Pt is a 44-year-old [place]olese-speaking female with a PMH significant for MDD with psychotic features and PTSD who is admitted to [facility] psychiatry unit for acting bizarre and altered above baseline. Sister apparently reported the pt attempted to jump audibly 4th floor window and has been indulging in cocaine cannabis recently. Medical consult for admission H&P. Mood disorder Plan as per psychiatry Pt otherwise has no acute medical complaints or chronic medical conditions. Had no acute medical complaints at presenting ED either. Will sign off for now. Thank you for allowing us to participate in the care of this pt. Please re- consult if any acute issue or need arises.
[2025-01-08 19:15] VITALS: BP 141/61; PULSE 110; RESP 16; TEMP 36.6; O2SAT 98
[2025-01-08] MEDS: Divalproex Sodium ER 500 MG TAB.ER.24H 1000 MG PO (20:32)
[2025-01-08] MEDS: Prazosin HCL 1 MG CAPSULE PO (20:32)
[2025-01-08] MEDS: Mirtazapine 7.5 MG TABLET PO (20:32)
[2025-01-08] MEDS: traZODone HCL 50 MG TABLET 150 MG PO (20:32)
[2025-01-09] MEDS: hydrOXYzine HCL 25 MG TABLET PO ×3 (06:04→20:29)
[2025-01-09 07:35] VITALS: BP 128/66; PULSE 73; RESP 18; TEMP 36.9; O2SAT 100
[2025-01-09 08:29] LABS: Alanine Aminotransferase 25 U/L (0-31); Albumin Level 4.4 g/dL (3.5-5.0); Aspartate Amino Transferase 32 U/L (5-31); Bilirubin Direct 0.1 mg/dL (0.0-0.5); Bilirubin Total 0.4 mg/dL (0.0-1.0); Cholesterol 154 mg/dL (<200); HDL Cholesterol 36 mg/dL (>40); LDL Cholesterol Calculated 107 mg/dL (<100); Total Protein 7.7 g/dL (6.5-8.0); Triglycerides 59 mg/dL (<150)
[2025-01-09 08:39] LABS: Alkaline Phosphatase 53 U/L (39-117)
[2025-01-09] MEDS: Cariprazine HCl 3 MG CAPSULE PO (08:48)
[2025-01-09 08:55] LABS: Free T4 (Free Thyroxine) 1.13 ng/dL (0.71-1.85); Thyroid Stimulating Hormone 0.66 uIU/mL (0.32-4.0)
--- NOTE | 2025-01-09 12:26 | P.PNPSI_ITS ---
Subjective Subjective Date of Service: 01/09/25 Reason For Visit: Mood disorder Interim History: feeling calmed by meds. states she slept about 6.5 hours overnight. would like to continue with current regimen. signed 3-day notice. per staff, taking meds. some anxiety. slept 4 hours. lots of loud self-dialogue overnight. Mental Status Exam Mental Status Exam Narrative: Pt is alert and oriented; behavior is cooperative and calm; dressed in casual attire; mood is described as more calm eye contact appropriate; Speech is normal rate, volume and prosody and not pressured; thought process is organized; Thought content is on Tx; no SI/HI/AVH expressed. Diagnostics Vital Signs (24Hr): Vital Signs - 24 hr 01/08/25 19:15 01/09/25 07:35 Temperature 97.8 F 98.4 F Pulse Rate 110 H 73 Respiratory Rate 16 18 Blood Pressure 141/61 H 128/66 Pulse Oximetry 98 100 Oxygen Delivery Method Room Air Room Air BMI result Body Mass Index 27.6 Labs 01/08/25 08:13 Labs: Laboratory Results - last 48 hr 01/08/25 01/09/25 08:13 07:29 WBC 7.2 RBC 4.21 Hgb 11.4 L Hct 34.8 L MCV 82.7 MCH 27.1 MCHC 32.8 RDW 15.5 Plt Count 283 MPV 9.2 L Immature Gran % (Auto) 0.4 Neut % (Auto) 55.8 Lymph % (Auto) 34.1 [place] % (Auto) 6.8 Eos % (Auto) 2.2 Baso % (Auto) 0.7 Lymph # (Auto) 2.5 [place] # (Auto) 0.5 Eos # (Auto) 0.2 Baso # (Auto) 0.1 Abs Immat Gran (auto) 0.03 Absolute Neuts (auto) 4.0 Absolute Nucleated RBC 0.000 Nucleated RBC % (auto) 0.0 Estimat Average Glucose 100 Hemoglobin A1c % 5.1 Total Bilirubin 0.4 Direct Bilirubin 0.1 AST 32 H ALT 25 Alkaline Phosphatase 53 Total Protein 7.7 Albumin 4.4 Triglycerides 59 Cholesterol 154 LDL Cholesterol, Calc 107 H HDL Cholesterol 36 L Vitamin B12 503 Folate 7.8 TSH 0.66 Free T4 1.13 Medications Medications Current Medications Acetaminophen (Acetaminophen 325 Mg Tablet) 650 mg PO Q6H PRN PRN Reason: Headache/Pain, Scale 1-10 Al Hydroxide/Mg Hydroxide (Magnesium Hydrox/Alum Hydrox 30 Ml Oral.Susp) 30 ml PO Q6H PRN PRN Reason: Heartburn/Nausea Cariprazine (Cariprazine Hcl 3 Mg Capsule) 3 mg PO DAILY [facility] Last Admin: 01/09/25 08:48 Dose: 3 mg Divalproex Sodium (Divalproex Sodium Er 500 Mg Tab.Er.24h) 1,000 mg PO BEDTIME [facility] Last Admin: 01/08/25 20:32 Dose: 1,000 mg Hydroxyzine HCl (Hydroxyzine Hcl 25 Mg Tablet) 25 mg PO Q6H PRN PRN Reason: mild anxiety Last Admin: 01/09/25 06:04 Dose: 25 mg Magnesium Hydroxide (Milk Of Magnesia 30 Ml Oral.Susp) 30 ml PO DAILY PRN PRN Reason: Constipation Mirtazapine (Mirtazapine 7.5 Mg Tablet) 7.5 mg PO BEDTIME [facility] Last Admin: 01/08/25 20:32 Dose: 7.5 mg Nicotine Polacrilex (Nicotine Polacrilex 2 Mg Gum) 4 mg BUCCAL Q2H PRN PRN Reason: Nicotine Cravings Non-Formulary Medication (Norethindrone) 0.35 mg PO DAILY [facility] Prazosin HCl (Prazosin Hcl 1 Mg Capsule) 1 mg PO BEDTIME [facility]; Protocol Last Admin: 01/08/25 20:32 Dose: 1 mg Trazodone HCl (Trazodone Hcl 50 Mg Tablet) 50 mg PO BEDTIME MRX1 PRN PRN Reason: Insomnia Trazodone HCl (Trazodone Hcl 50 Mg Tablet) 150 mg PO BEDTIME [facility] Last Admin: 01/08/25 20:32 Dose: 150 mg Allergies Allergies Allergy/AdvReac Type Severity Reaction Status Date / Time No Known Allergies Allergy Verified 03/11/24 13:57 Assessment & Plan Assessment & Plan (1) Medical clearance for psychiatric admission: Status: Acute Code(s): Z00.8 - Encounter for other general examination Assessment and Plan: Pt is a 44-year-old Ukrainian-speaking female with a PMH significant for MDD with psychotic features and PTSD who is admitted to psychiatry unit for acting bizarre and altered above baseline. Sister apparently reported the pt attempted to jump audibly 4th floor window and has been indulging in cocaine cannabis recently. Medical consult for admission H&P. Mood disorder Plan as per psychiatry Pt otherwise has no acute medical complaints or chronic medical conditions. Had no acute medical complaints at presenting ED either. Will sign off for now. Thank you for allowing us to participate in the care of this pt. Please re- consult if any acute issue or need arises. (2) Mood disorder: Status: Acute Code(s): F39 - Unspecified mood [affective] disorder (3) Cocaine use: Status: Acute Code(s): F14.90 - Cocaine use, unspecified, uncomplicated (4) Alcohol use: Status: Acute Code(s): F10.90 - Alcohol use, unspecified, uncomplicated Plan 01/08: start depakote ER 1000 mg QHS for mood stabilization. DC gabapentin 300 TID as not indicated. DC buspar 5 BID as not indicated. continue other home meds. stabilize, return to community. 01/09: slept 6.5 hours overnight. reports mood has been calmed by VPA. signed 3-day notice. continue current mgmt. Reason for continued inpatient stay Substantial Risk for: harm to self, inability to function and rapid decompensation Time Spent With Patient Time: Total time managing care of this patient today __25__ minutes.
[2025-01-09 20:00] VITALS: BP 129/60; PULSE 64; RESP 18; TEMP 36.5; O2SAT 100
[2025-01-09 20:28] VITALS: BP 129/60
[2025-01-09] MEDS: Prazosin HCL 1 MG CAPSULE PO (20:28)
[2025-01-09] MEDS: Divalproex Sodium ER 500 MG TAB.ER.24H 1000 MG PO (20:29)
[2025-01-09] MEDS: Mirtazapine 7.5 MG TABLET PO (20:29)
[2025-01-09] MEDS: traZODone HCL 50 MG TABLET 150 MG PO (20:29)
[2025-01-10] MEDS: traZODone HCL 50 MG TABLET PO ×2 (00:22→23:54)
[2025-01-10] MEDS: hydrOXYzine HCL 25 MG TABLET PO ×2 (03:30→17:43)
[2025-01-10 08:19] VITALS: BP 132/59; PULSE 88; TEMP 36.7; O2SAT 99
--- NOTE | 2025-01-10 09:01 | HO.PSYCHPN ---
Subjective Subjective Date of Service: 01/10/25 Reason For Visit: Mood disorder Interim History: Improved mood and anxiety with meds. Some difficulty sleeping and anxiety remain. states she slept poorly. Per staff, taking meds. Denies SI. Review of Systems Review of Systems Pt has no acute or chronic medical complaints at this time. Mental Status Exam Mental Status Exam Narrative: Pt is alert and oriented; behavior is cooperative and calm; dressed in casual attire; mood is described as more calm eye contact appropriate; Speech is normal rate, volume and prosody and not pressured; thought process is organized; Thought content is on Tx; no SI/HI/AVH expressed. Diagnostics Vital Signs (24Hr): Vital Signs - 24 hr 01/09/25 20:00 01/09/25 20:28 01/10/25 08:19 Temperature 97.7 F 98.1 F Pulse Rate 64 88 Respiratory Rate 18 Blood Pressure 129/60 129/60 132/59 L Pulse Oximetry 100 99 Oxygen Delivery Method Room Air Room Air BMI result Body Mass Index 27.6 Labs 01/08/25 08:13 Labs: Laboratory Results - last 48 hr 01/08/25 01/09/25 08:13 07:29 Estimat Average Glucose 100 Hemoglobin A1c % 5.1 Total Bilirubin 0.4 Direct Bilirubin 0.1 AST 32 H ALT 25 Alkaline Phosphatase 53 Total Protein 7.7 Albumin 4.4 Triglycerides 59 Cholesterol 154 LDL Cholesterol, Calc 107 H HDL Cholesterol 36 L Vitamin B12 503 Folate 7.8 TSH 0.66 Free T4 1.13 Medications Medications Current Medications Acetaminophen (Acetaminophen 325 Mg Tablet) 650 mg PO Q6H PRN PRN Reason: Headache/Pain, Scale 1-10 Al Hydroxide/Mg Hydroxide (Magnesium Hydrox/Alum Hydrox 30 Ml Oral.Susp) 30 ml PO Q6H PRN PRN Reason: Heartburn/Nausea Cariprazine (Cariprazine Hcl 3 Mg Capsule) 3 mg PO DAILY [facility] Last Admin: 01/09/25 08:48 Dose: 3 mg Divalproex Sodium (Divalproex Sodium Er 500 Mg Tab.Er.24h) 1,000 mg PO BEDTIME [facility] Last Admin: 01/09/25 20:29 Dose: 1,000 mg Hydroxyzine HCl (Hydroxyzine Hcl 25 Mg Tablet) 25 mg PO Q6H PRN PRN Reason: mild anxiety Last Admin: 01/10/25 03:30 Dose: 25 mg Magnesium Hydroxide (Milk Of Magnesia 30 Ml Oral.Susp) 30 ml PO DAILY PRN PRN Reason: Constipation Mirtazapine (Mirtazapine 7.5 Mg Tablet) 7.5 mg PO BEDTIME [facility] Last Admin: 01/09/25 20:29 Dose: 7.5 mg Nicotine Polacrilex (Nicotine Polacrilex 2 Mg Gum) 4 mg BUCCAL Q2H PRN PRN Reason: Nicotine Cravings Non-Formulary Medication (Norethindrone) 0.35 mg PO DAILY [facility] Prazosin HCl (Prazosin Hcl 1 Mg Capsule) 1 mg PO BEDTIME [facility]; Protocol Last Admin: 01/09/25 20:28 Dose: 1 mg Trazodone HCl (Trazodone Hcl 50 Mg Tablet) 50 mg PO BEDTIME MRX1 PRN PRN Reason: Insomnia Last Admin: 01/10/25 00:22 Dose: 50 mg Trazodone HCl (Trazodone Hcl 50 Mg Tablet) 150 mg PO BEDTIME [facility] Last Admin: 01/09/25 20:29 Dose: 150 mg Allergies Allergies Allergy/AdvReac Type Severity Reaction Status Date / Time No Known Allergies Allergy Verified 03/11/24 13:57 Assessment & Plan Assessment & Plan (1) Mood disorder: Status: Acute Code(s): F39 - Unspecified mood [affective] disorder (2) Cocaine use: Status: Acute Code(s): F14.90 - Cocaine use, unspecified, uncomplicated (3) Alcohol use: Status: Acute Code(s): F10.90 - Alcohol use, unspecified, uncomplicated (4) PTSD (post-traumatic stress disorder): Status: Acute Code(s): F43.10 - Post-traumatic stress disorder, unspecified (5) MDD (major depressive disorder), recurrent, severe, with psychosis: Status: Acute Code(s): F33.3 - Major depressive disorder, recurrent, severe with psychotic symptoms Plan 01/08: start depakote ER 1000 mg QHS for mood stabilization. DC gabapentin 300 TID as not indicated. DC buspar 5 BID as not indicated. continue other home meds. stabilize, return to community. 01/09: slept 6.5 hours overnight. reports mood has been calmed by VPA. signed 3-day notice. continue current mgmt. 01/10: Increase Prazosin to 2 mg HS. Continue other management and treatment plan. Reason for continued inpatient stay Substantial Risk for: harm to self, inability to function and rapid decompensation Time Spent With Patient Time: Total time managing care of this patient today ____ minutes.
[2025-01-10] MEDS: Cariprazine HCl 3 MG CAPSULE PO (09:23)
[2025-01-10 20:00] VITALS: BP 106/61; PULSE 76; RESP 16; TEMP 36.9; O2SAT 100
[2025-01-10] MEDS: Prazosin HCL 1 MG CAPSULE 2 MG PO (20:30)
[2025-01-10] MEDS: traZODone HCL 50 MG TABLET 150 MG PO (20:31)
[2025-01-10] MEDS: Mirtazapine 7.5 MG TABLET PO (20:31)
[2025-01-10] MEDS: Divalproex Sodium ER 500 MG TAB.ER.24H 1000 MG PO (20:31)
[2025-01-11] MEDS: traZODone HCL 50 MG TABLET PO (02:57)
[2025-01-11] MEDS: hydrOXYzine HCL 25 MG TABLET PO ×2 (05:17→15:43)
[2025-01-11 08:30] VITALS: BP 124/62; PULSE 92; RESP 14; TEMP 36.4; O2SAT 95
[2025-01-11] MEDS: Cariprazine HCl 3 MG CAPSULE PO (08:41)
--- NOTE | 2025-01-11 12:11 | P.PNPSI_ITS ---
Subjective Subjective Date of Service: 01/11/25 Reason For Visit: Mood disorder Interim History: Poor sleep last night. Says it is because of the way her room is set up and that she has 2 other roommates which isn't something she is anxious about. Woke up at 2, 3:30 and 5:30. She is observed talking to self. She engages with roommate and select peers. Per staff, taking meds. Denies SI. Review of Systems Review of Systems Pt has no acute or chronic medical complaints at this time. Mental Status Exam Mental Status Exam Narrative: Pt is alert and oriented; behavior is cooperative and calm; dressed in casual attire; mood is described as more calm eye contact appropriate; Speech is normal rate, volume and prosody and not pressured; thought process is organized; Thought content is on Tx; no SI/HI/AVH expressed. Diagnostics Vital Signs (24Hr): Vital Signs - 24 hr 01/10/25 20:00 01/11/25 08:30 Temperature 98.4 F 97.5 F Pulse Rate 76 92 Respiratory Rate 16 14 Blood Pressure 106/61 124/62 Pulse Oximetry 100 95 Oxygen Delivery Method Room Air Room Air BMI result Body Mass Index 27.6 Labs 01/08/25 08:13 Medications Medications Current Medications Acetaminophen (Acetaminophen 325 Mg Tablet) 650 mg PO Q6H PRN PRN Reason: Headache/Pain, Scale 1-10 Al Hydroxide/Mg Hydroxide (Magnesium Hydrox/Alum Hydrox 30 Ml Oral.Susp) 30 ml PO Q6H PRN PRN Reason: Heartburn/Nausea Cariprazine (Cariprazine Hcl 3 Mg Capsule) 3 mg PO DAILY [facility] Last Admin: 01/11/25 08:41 Dose: 3 mg Divalproex Sodium (Divalproex Sodium Er 500 Mg Tab.Er.24h) 1,000 mg PO BEDTIME [facility] Last Admin: 01/10/25 20:31 Dose: 1,000 mg Hydroxyzine HCl (Hydroxyzine Hcl 25 Mg Tablet) 25 mg PO Q6H PRN PRN Reason: mild anxiety Last Admin: 01/11/25 05:17 Dose: 25 mg Magnesium Hydroxide (Milk Of Magnesia 30 Ml Oral.Susp) 30 ml PO DAILY PRN PRN Reason: Constipation Mirtazapine (Mirtazapine 7.5 Mg Tablet) 7.5 mg PO BEDTIME [facility] Last Admin: 01/10/25 20:31 Dose: 7.5 mg Nicotine Polacrilex (Nicotine Polacrilex 2 Mg Gum) 4 mg BUCCAL Q2H PRN PRN Reason: Nicotine Cravings Non-Formulary Medication (Norethindrone) 0.35 mg PO DAILY [facility] Prazosin HCl (Prazosin Hcl 1 Mg Capsule) 2 mg PO BEDTIME [facility]; Protocol Last Admin: 01/10/25 20:30 Dose: 2 mg Trazodone HCl (Trazodone Hcl 50 Mg Tablet) 50 mg PO BEDTIME MR[facility]1 PRN PRN Reason: Insomnia Last Admin: 01/11/25 02:57 Dose: 50 mg Trazodone HCl (Trazodone Hcl 50 Mg Tablet) 150 mg PO BEDTIME [facility] Last Admin: 01/10/25 20:31 Dose: 150 mg Allergies Allergies Allergy/AdvReac Type Severity Reaction Status Date / Time No Known Allergies Allergy Verified 03/11/24 13:57 Assessment & Plan Assessment & Plan (1) Mood disorder: Status: Acute Code(s): F39 - Unspecified mood [affective] disorder (2) Cocaine use: Status: Acute Code(s): F14.90 - Cocaine use, unspecified, uncomplicated (3) Alcohol use: Status: Acute Code(s): F10.90 - Alcohol use, unspecified, uncomplicated (4) PTSD (post-traumatic stress disorder): Status: Acute Code(s): F43.10 - Post-traumatic stress disorder, unspecified (5) MDD (major depressive disorder), recurrent, severe, with psychosis: Status: Acute Code(s): F33.3 - Major depressive disorder, recurrent, severe with psychotic symptoms Plan 01/08: start depakote ER 1000 mg QHS for mood stabilization. DC gabapentin 300 TID as not indicated. DC buspar 5 BID as not indicated. continue other home meds. stabilize, return to community. 01/09: slept 6.5 hours overnight. reports mood has been calmed by VPA. signed 3-day notice. continue current mgmt. 01/10: Increase Prazosin to 2 mg HS. Continue other management and treatment plan. 01/11: Increase Prazosin 5 mg. Reason for continued inpatient stay Substantial Risk for: harm to self, inability to function and rapid decompensation Time Spent With Patient Time: Total time managing care of this patient today ____ minutes.
[2025-01-11 20:00] VITALS: BP 130/75; PULSE 85; RESP 18; TEMP 36.8; O2SAT 99
[2025-01-11] MEDS: Mirtazapine 7.5 MG TABLET PO (20:41)
[2025-01-11] MEDS: traZODone HCL 50 MG TABLET 150 MG PO (20:41)
[2025-01-11] MEDS: Prazosin HCL 5 MG CAPSULE PO (20:44)
[2025-01-11] MEDS: Divalproex Sodium ER 500 MG TAB.ER.24H 1000 MG PO (20:46)
[2025-01-12] MEDS: hydrOXYzine HCL 25 MG TABLET PO (04:11)
[2025-01-12 07:49] VITALS: BP 108/67; PULSE 88; RESP 14; TEMP 36.4; O2SAT 100
[2025-01-12] MEDS: Cariprazine HCl 3 MG CAPSULE PO (08:57)
--- NOTE | 2025-01-12 15:29 | HO.PSYCHPN ---
Subjective Subjective Date of Service: 01/12/25 Reason For Visit: Mood disorder Interim History: energetic, personable. anxious in the morning, some flashes of anger at the news, but under control. planning to discharge wed. aware of labs to be drawn tomorrow. per staff. 3-day upweds. poor sleep. taking meds. +dep. +RIS/AH. social. racing thoughts. loud self-dialogue overnight. slept about 6 hours. Mental Status Exam Mental Status Exam Narrative: Pt is alert and oriented; behavior is cooperative and calm; dressed in casual attire; mood is described as euthymic. eye contact appropriate; Speech is normal rate, volume and prosody and not pressured; thought process is organized; Thought content is on Tx; no SI/HI/AVH expressed. Diagnostics Vital Signs (24Hr): Vital Signs - 24 hr 01/11/25 20:00 01/12/25 07:49 Temperature 98.2 F 97.5 F Pulse Rate 85 88 Respiratory Rate 18 14 Blood Pressure 130/75 108/67 Pulse Oximetry 99 100 Oxygen Delivery Method Room Air Room Air BMI result Body Mass Index 27.6 Labs 01/08/25 08:13 Medications Medications Current Medications Acetaminophen (Acetaminophen 325 Mg Tablet) 650 mg PO Q6H PRN PRN Reason: Headache/Pain, Scale 1-10 Al Hydroxide/Mg Hydroxide (Magnesium Hydrox/Alum Hydrox 30 Ml Oral.Susp) 30 ml PO Q6H PRN PRN Reason: Heartburn/Nausea Cariprazine (Cariprazine Hcl 3 Mg Capsule) 3 mg PO DAILY [facility] Last Admin: 01/12/25 08:57 Dose: 3 mg Divalproex Sodium (Divalproex Sodium Er 500 Mg Tab.Er.24h) 1,000 mg PO BEDTIME [facility] Last Admin: 01/11/25 20:46 Dose: 1,000 mg Hydroxyzine HCl (Hydroxyzine Hcl 25 Mg Tablet) 25 mg PO Q6H PRN PRN Reason: mild anxiety Last Admin: 01/12/25 04:11 Dose: 25 mg Magnesium Hydroxide (Milk Of Magnesia 30 Ml Oral.Susp) 30 ml PO DAILY PRN PRN Reason: Constipation Mirtazapine (Mirtazapine 7.5 Mg Tablet) 7.5 mg PO BEDTIME [facility] Last Admin: 01/11/25 20:41 Dose: 7.5 mg Nicotine Polacrilex (Nicotine Polacrilex 2 Mg Gum) 4 mg BUCCAL Q2H PRN PRN Reason: Nicotine Cravings Prazosin HCl (Prazosin Hcl 5 Mg Capsule) 5 mg PO BEDTIME [facility]; Protocol Last Admin: 01/11/25 20:44 Dose: 5 mg Trazodone HCl (Trazodone Hcl 50 Mg Tablet) 50 mg PO BEDTIME [facility] PRN PRN Reason: Insomnia Last Admin: 01/11/25 02:57 Dose: 50 mg Trazodone HCl (Trazodone Hcl 50 Mg Tablet) 150 mg PO BEDTIME [facility] Last Admin: 01/11/25 20:41 Dose: 150 mg Allergies Allergies Allergy/AdvReac Type Severity Reaction Status Date / Time No Known Allergies Allergy Verified 03/11/24 13:57 Assessment & Plan Assessment & Plan (1) Mood disorder: Status: Acute Code(s): F39 - Unspecified mood [affective] disorder (2) Cocaine use: Status: Acute Code(s): F14.90 - Cocaine use, unspecified, uncomplicated (3) Alcohol use: Status: Acute Code(s): F10.90 - Alcohol use, unspecified, uncomplicated (4) PTSD (post-traumatic stress disorder): Status: Acute Code(s): F43.10 - Post-traumatic stress disorder, unspecified (5) MDD (major depressive disorder), recurrent, severe, with psychosis: Status: Acute Code(s): F33.3 - Major depressive disorder, recurrent, severe with psychotic symptoms Plan 01/08: start depakote ER 1000 mg QHS for mood stabilization. DC gabapentin 300 TID as not indicated. DC buspar 5 BID as not indicated. continue other home meds. stabilize, return to community. 01/09: slept 6.5 hours overnight. reports mood has been calmed by VPA. signed 3-day notice. continue current mgmt. 01/10: Increase Prazosin to 2 mg HS. Continue other management and treatment plan. 01/11: Increase Prazosin 5 mg. 01/12: reports good sleep. 3-day up weds. check labs tomorrow night. discharge weds per pt preference. Reason for continued inpatient stay Substantial Risk for: harm to self, harm to others, inability to function and rapid decompensation Time Spent With Patient Time: Total time managing care of this patient today __25__ minutes.
[2025-01-12 19:30] VITALS: BP 119/59; PULSE 70; RESP 16; TEMP 36.9; O2SAT 100
[2025-01-12] MEDS: Prazosin HCL 5 MG CAPSULE PO (20:23)
[2025-01-12] MEDS: traZODone HCL 50 MG TABLET 150 MG PO (20:23)
[2025-01-12] MEDS: Mirtazapine 7.5 MG TABLET PO (20:23)
[2025-01-12] MEDS: Divalproex Sodium ER 500 MG TAB.ER.24H 1000 MG PO (20:23)
[2025-01-13] MEDS: traZODone HCL 50 MG TABLET PO (03:30)
[2025-01-13 08:00] VITALS: BP 124/66; PULSE 98; RESP 14; TEMP 36.7; O2SAT 99
[2025-01-13] MEDS: Cariprazine HCl 3 MG CAPSULE PO (08:30)
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
[2025-01-13] MEDS: hydrOXYzine HCL 25 MG TABLET PO (17:45)
[2025-01-13 20:13] LABS: MANUAL DIFF FLAG NO
[2025-01-13 20:20] VITALS: BP 118/64; PULSE 97; RESP 18; TEMP 36.8; O2SAT 100
[2025-01-13 20:25] LABS: Basophils Percent Auto 0.6 % (0-2); Eosinophils Absolute Auto 0.3 X10*3/uL (0.0-0.4); Hematocrit 34.6 % (37.0-47.0); Hemoglobin 11.3 g/dl (12.0-16.0); Imm Gran Abs Auto 0.02 X10*3/uL (0.00-0.03); Imm Gran Pct Auto 0.3 % (0.0-0.4); Lymphocytes Absolute Auto 2.6 X10*3/uL (1.2-4.9); Lymphocytes Percent Auto 41.2 % (20-40); Mean Corpuscular HGB Conc 32.7 g/dl (31.0-35.0); Mean Corpuscular Hemoglobin 27.3 pg (27.0-33.0); Mean Corpuscular Volume 83.6 fL (80.0-98.0); Mean Platelet Volume 9.5 fL (9.4-12.3); Monocytes Absolute Auto 0.6 X10*3/uL (0.1-1.2); Monocytes Percent Auto 9.4 % (2-11); Neutrophils Absolute Auto 2.8 x10*3/uL (2.0-8.3); Neutrophils Percent Auto 44.5 % (45-73); Platelet Count 214 X10*3/uL (160-400); Red Blood Count 4.14 X10*6/uL (4.20-5.50); Red Cell Distribution Width 15.3 % (11.0-16.0); White Blood Count 6.3 X10*3/uL (4.8-10.8)
[2025-01-13 20:25] LABS: Valproate 75.8 mcg/mL (50.0-100.0)
[2025-01-13 20:27] LABS: Alanine Aminotransferase 22 U/L (0-31); Alkaline Phosphatase 46 U/L (39-117); Aspartate Amino Transferase 25 U/L (5-31); Bilirubin Direct < 0.2 mg/dL (0.0-0.5); Bilirubin Total 0.2 mg/dL (0.0-1.0); Total Protein 6.7 g/dL (6.5-8.0)
[2025-01-13 20:32] LABS: Ammonia 31 umol/L (13-55)
[2025-01-13 21:08] VITALS: BP 118/64
[2025-01-13] MEDS: Prazosin HCL 5 MG CAPSULE PO (21:08)
[2025-01-13] MEDS: Mirtazapine 7.5 MG TABLET PO (21:08)
[2025-01-13] MEDS: Divalproex Sodium ER 500 MG TAB.ER.24H 1000 MG PO (21:09)
[2025-01-13] MEDS: traZODone HCL 50 MG TABLET 150 MG PO (21:09)
[2025-01-14] MEDS: traZODone HCL 50 MG TABLET PO (02:10)
[2025-01-14] MEDS: hydrOXYzine HCL 25 MG TABLET PO (06:30)
[2025-01-14 08:00] VITALS: BP 112/70; PULSE 94; RESP 16; TEMP 36.5; O2SAT 100
[2025-01-14] MEDS: Cariprazine HCl 3 MG CAPSULE PO (08:16)
== END 2025-01-14 10:08 | disposition home or self-care (01) | DRG 885 ==
PROVIDERS: Admitting Provider Psychiatry & Neurology Psychiatry; Visit Provider Psychiatry & Neurology Psychiatry
DX: F33.3 Major depressive disorder, recurrent, severe with psychotic symptoms (principal); F14.90 Cocaine use, unspecified, uncomplicated; F10.90 Alcohol use, unspecified, uncomplicated; Z87.891 Personal history of nicotine dependence; Z79.899 Other long term (current) drug therapy; F43.12 Post-traumatic stress disorder, chronic
CPT/HCPCS: 36415; 80061; 80076; 80164; 82140; 82607; 82746; 83036; 84439; 84443; 85025

== ENCOUNTER → 2025-01-07 13:35 | Outpatient (BNV) | payer OTHER, MEDICAID, SELFPAY | PROVIDERS: Admitting Provider Psychiatry & Neurology Psychiatry; Visit Provider Student in an Organized Health Care Education/Training Program | DX: Z00.8 Encounter for other general examination (principal) | CPT/HCPCS: 99222 ==

== ENCOUNTER → 2025-01-07 13:35 | Outpatient (BNV) | payer OTHER, MEDICAID, SELFPAY | PROVIDERS: Admitting Provider Psychiatry & Neurology Psychiatry; Visit Provider Psychiatry & Neurology Psychiatry | DX: F39 Unspecified mood [affective] disorder (principal); F10.90 Alcohol use, unspecified, uncomplicated; F14.90 Cocaine use, unspecified, uncomplicated | CPT/HCPCS: 90792; 99231; 99232; 99239 ==